=== PATIENT | male | born 1940 | race African-American/Black ===

== ENCOUNTER 2017-10-06 09:59 | Outpatient (CLI) | payer MEDICARE ==
[2017-10-06 11:05] LABS: Anion Gap 12 mmol/L (10-20); BUN (Urea Nitrogen) 13 mg/dL (8.4-25.7); Calc. Creatinine Clearance 0 mL/min (70-130); Calcium 10.5 mg/dL (7.8-10.44); Carbon Dioxide 28 mmol/L (23-31); Chloride 106 mmol/L (98-107); Estimated GFR-MDRD 80; Glucose 93 mg/dL (83-110); Sodium 142 mmol/L (136-145)
--- NOTE | 2017-10-06 15:07 | CT ---
CT ABDOMEN AND PELVIS WITH AND WITHOUT CONTRAST: HISTORY: C61, prostate cancer. COMPARISON: CT abdomen and pelvis 12/12/16. FINDINGS: Lung bases are clear. No pericardial effusion. On the noncontrast evaluation, no nephroureteral lithiasis or hydroureteral nephrosis. No secondary evidence of recently passed stone. Prior prostatectomy and stone dissection. Multiple cysts of the kidneys bilaterally. These findings are similar. There are also multiple hypodensities of both kidneys which are too small to fully mike racterize. There is no filling defect within the renal collecting systems. Moderate degenerative changes of the spine. Cholelithiasis is present. No free intraperitoneal gas or fluid. The appendix is visualized and is normal. No dilated loops of large or small bowel. Moderate atherosclerotic plaque of the aorta without aneurysmal dilatation. The L2 vertebral body hemangioma is similar. No new abnormal areas of sclerosis to suggest osseous m etastatic disease. Laminectomy changes at L3-L4. The hepatic segment 7 is a flash-filling hemangioma, unchanged. IMPRESSION: 1. No evidence for disease recurrence. 2. Flash hemangioma hepatic segment 7. 3. Multiple renal hypodensities bilaterally. Those of which are greater than 1 cm, are suggestive o f cysts. Those that are less than 1 cm are too small to fully characterize. 4. Cholelithiasis without cholecystitis. POS: [facility]
--- NOTE | 2017-10-06 16:43 | NM ---
WHOLE BODY BONE SCAN 10/06/17 HISTORY: Prostate cancer. FINDINGS: There is increased uptake seen within the bilateral shoulders, sternomanubrial joints and the right f orefoot likely related to degenerative changes. There is a focal area of increased uptake seen within the right maxilla which may be related to a dental blanca. There are scattered areas of increased upt bess seen within the cervical and lumbar spine also probably on a degenerative basis. There are photop enic defects involving each knee related to bilateral knee prostheses. There is increased uptake overlying the lower pelvis shown to represent urine contamination on latera l projection. No other areas of abnormal uptake or radiotracer are seen. Normal uptake is seen in the kidneys urinary bladder. IMPRESSION: 1. Scattered degenerative changes, but there are no scintigraphic findings to suggest osseous me tastatic disease. 2. Bilateral knee prostheses. 3. Focal increased uptake in the right maxilla which may be related to a dental blanca. POS: [facility]
[2017-10-06] MEDS ORDERED: Iopamidol 370 76% 100 ML VIAL ONE (17:31)
== END 2017-10-06 10:00 | disposition home or self-care (01) ==
LOC: CT 09:59
PROVIDERS: ATTEND Urology
DX: C61 Malignant neoplasm of prostate (principal); N32.0 Bladder-neck obstruction; N28.1 Cyst of kidney, acquired; K80.20 Calculus of gallbladder without cholecystitis without obstruction; D18.09 Hemangioma of other sites; M19.90 Unspecified osteoarthritis, unspecified site; Z96.653 Presence of artificial knee joint, bilateral
CPT/HCPCS: 74178; 78306; 80048; 84153; A9503; 36415

== ENCOUNTER 2017-11-24 11:14 | Emergency (ER) | payer MEDICARE, OTHER ==
--- NOTE | 2017-11-24 11:41 | RAD ---
PORTABLE AP CHEST X-RAY: 11/24/2017 HISTORY: Vomiting and weakness since Friday. COMPARISON: 01/02/2016 FINDINGS: The cardiac silhouette and pulmonary vasculature are within normal limits. There is a nodular densit y projecting over the lateral left lung base, overlying the anterior left sixth rib, probably due to a small calcified granuloma. The lungs are otherwise clear. Degenerative change is seen in the spin e. No other interval change. IMPRESSION: No acute cardiopulmonary process. POS: [facility]
[2017-11-24 12:00] LABS: #Basophils 0.1 thou/uL (0.0-0.2); #Eosinphils 0.1 thou/uL (0.0-0.7); #Monocytes 0.5 thou/uL (0.11-0.59); #Neutrophils 3.8 thou/uL (1.40-6.50); %Basophils 1.1 % (0.0-1.0); %Eosinophils 1.5 % (0.0-10.0); %Lymphocytes 30.6 % (21.0-51.0); %Monocytes 7.7 % (0.0-10.0); %Neutrophils 59.1 % (42.0-75.0); Hemoglobin 11.4 g/dL (14.0-18.0); Mean Corpuscular Hemoglobin 28.3 pg (27.0-31.0); Mean Corpuscular Volume 91.3 fl (80.0-94.0); Mean Platelet Volume 8.6 fL (7.4-10.4); Platelet Count 216 thou/uL (130-400); Red Blood Cell (RBC) Count 4.04 mill/uL (4.70-6.10); White Blood Cell (WBC) Count 6.4 thou/uL (4.8-10.8)
[2017-11-24 12:16] LABS: ALT (SGPT) 26 U/L (8-55); AST (SGOT) 30 U/L (5-34); Albumin 4.3 g/dL (3.4-4.8); Alkaline Phosphatase 88 U/L (40-150); Anion Gap 13 mmol/L (10-20); BUN (Urea Nitrogen) 31 mg/dL (8.4-25.7); Bilirubin, Total 0.4 mg/dL (0.2-1.2); CK (CPK) 221 U/L (30-200); Calc. Creatinine Clearance 0 mL/min (70-130); Calcium 10.4 mg/dL (7.8-10.44); Carbon Dioxide 26 mmol/L (23-31); Chloride 104 mmol/L (98-107); Estimated GFR-MDRD 64; Glucose 101 mg/dL (83-110); Potassium 4.5 mmol/L (3.5-5.1); Protein, Total 8.3 g/dL (5.8-8.1); Sodium 138 mmol/L (136-145)
[2017-11-24 12:20] LABS: CKMB 2.6 ng/mL (0-6.6); Troponin I Less than 0.010 ng/mL (< 0.028)
[2017-11-24] MEDS ORDERED: Ondansetron HCl/PF 4 MG/2 ML Vial ONE (13:31)
--- NOTE | 2017-11-29 15:33 | EKG ---
Test Reason : Blood Pressure : / mmHG Vent. Rate : 092 BPM Atrial Rate : 092 BPM P-R Int : 168 ms QRS Dur : 082 ms QT Int : 348 ms P-R-T Axes : 071 022 053 degrees QTc Int : 430 ms Normal sinus rhythm Normal ECG Confirmed by MICHAEL FRANKS ([id number]), continuity editor BOYD MENSAH ([id number]) on 11/29/2017 3:32:49 PM Referred By: Confirmed By:MICHAEL FRANKS
== END 2017-11-24 15:03 | disposition home or self-care (01) ==
LOC: ERS 11:14
DX: E86.0 Dehydration (principal); E78.5 Hyperlipidemia, unspecified; I10 Essential (primary) hypertension; F17.220 Nicotine dependence, chewing tobacco, uncomplicated; M10.9 Gout, unspecified
CPT/HCPCS: 36415; 71045; 80053; 82550; 82553; 84484; 85025; 93005; 94760; 96360; J2405

== ENCOUNTER 2017-12-18 13:19 | Outpatient (CLI) | payer MEDICARE ==
[2017-12-18 13:56] LABS: Mean Corpuscular HGB CONC 31.2 g/dL (32.0-36.0); Mean Corpuscular Volume 89.8 fl (80.0-94.0); Mean Platelet Volume 7.7 fL (7.4-10.4); Platelet Count 243 thou/uL (130-400); RBC Distribution Width 16.5 % (11.5-14.5); Red Blood Cell (RBC) Count 3.92 mill/uL (4.70-6.10); White Blood Cell (WBC) Count 4.4 thou/uL (4.8-10.8)
[2017-12-18 14:01] LABS: Bilirubin Negative (Negative); Blood, Urine Negative (Negative); Clarity CLEAR (Clear); Glucose, Urine (Dipstick) Negative (Negative); Leukocyte Trace (Negative); Nitrite Negative (Negative); Protein, Urine (Dipstick) Negative (Neg-Trace); Specific Gravity, Urine 1.022 (1.002-1.036); Urobilinogen 0.2 mg/dL (0.2-1.0)
[2017-12-18 14:03] LABS: INR-International Normal Ratio 1.1; PTT 33.2 SEC (22.9-36.1); Prothrombin Time 14.7 SEC (12.0-14.7)
[2017-12-18 14:08] LABS: Bacteria/HPF None Seen HPF (None Seen); Hyaline Casts/LPF 0-3 HYALINE CAST LPF (0-3 Hyaline); RBC/HPF 0-3 HPF (0-3); Squamous Epithelial 0-3 HPF (0-3)
[2017-12-18 14:27] LABS: Anion Gap 10 mmol/L (10-20); BUN (Urea Nitrogen) 18 mg/dL (8.4-25.7); Calc. Creatinine Clearance 0 mL/min (70-130); Calcium 10.2 mg/dL (7.8-10.44); Carbon Dioxide 27 mmol/L (23-31); Chloride 106 mmol/L (98-107); Estimated GFR-MDRD 78; Glucose 86 mg/dL (83-110); Potassium 4.1 mmol/L (3.5-5.1); Sodium 139 mmol/L (136-145)
--- NOTE | 2017-12-20 18:35 | EKG ---
Test Reason : Blood Pressure : / mmHG Vent. Rate : 072 BPM Atrial Rate : 072 BPM P-R Int : 188 ms QRS Dur : 080 ms QT Int : 380 ms P-R-T Axes : 072 051 056 degrees QTc Int : 416 ms Normal sinus rhythm Normal ECG When compared with ECG of 24-NOV-2017 11:47, No significant change was found Confirmed by BLACK ERWIN, SFareed ([id number]) on 12/20/2017 6:35:01 PM Referred By: SERGIO Confirmed By:DR. Eddi CLEANING MD
== END 2017-12-18 13:20 | disposition home or self-care (01) ==
LOC: LABBT 13:19
PROVIDERS: ATTEND Urology
DX: Z01.818 Encounter for other preprocedural examination (principal); C61 Malignant neoplasm of prostate; N32.0 Bladder-neck obstruction
CPT/HCPCS: 80048; 81001; 85027; 85610; 85730; 87086; 93005; 93010

== ENCOUNTER 2017-12-31 05:48 | Day surgery (SDC) | payer MEDICARE, OTHER ==
[2017-12-18 13:42] VITALS: BMI 28.5
[2017-12-31] MEDS ORDERED: Fentanyl 100 MCG/2 ML VIAL ONE (06:55)
[2017-12-31] MEDS ORDERED: Levofloxacin 500 mg/D5W 100 ml Premix Bag ONE (06:59)
[2017-12-31] MEDS ORDERED: Oxybutynin 5 MG TAB ONE (08:26)
[2017-12-31] MEDS ORDERED: Phenazopyridine HCl 97.5 MG TABLET ONE (08:27)
--- NOTE | 2017-12-31 09:47 | OP ---
DATE OF OPERATION: 12/31/2017 PREOPERATIVE DIAGNOSES: 1. A 77-year-old male with pathologic T3 N0 [place] sum 3+3 prostate cancer, status post rad ical prostatectomy, bilateral pelvic lymph node dissection performed by Dr. Higginbotham in 2004. 2. History of post-prostatectomy incontinence. 3. 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 POSTOPERATIVE DIAGNOSES: 1. A 77-year-old male with pathologic T3 N0 [place] sum 3+3 prostate cancer, status post rad ical prostatectomy, bilateral pelvic lymph node dissection performed by Dr. Higginbotham in 2004. 2. History of post-prostatectomy incontinence. 3. 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 PROCEDURES PERFORMED: Cystoscopy, transurethral resection of bladder neck contracture, cystoscopy, d ilation of bladder neck contracture, 22 Palestinian 10 mL Councill-tip Villanueva catheter placement over guide wire. SURGEON: Jeriyln Yañez D.O. ANESTHESIA: LMA. COMPLICATIONS: None apparent. DISPOSITION: To recovery room in stable condition. SPECIMEN: TUR of bladder neck. INDICATIONS FOR PROCEDURE AND HISTORY: Mr. Olivier is a 77-year-old -Citizen Of [place] male with pathol ogic T3 N0 [place] sum 3+3 with apical margin focally positive. The patient does have biochemical re currence, PSA; however, has been relatively stable at 0.2-0.3 and he does not desire adjuvant radiati on therapy. Metastatic workup is negative. I saw the patient for history of incontinence, found to have a tight bladder neck contracture which was dilated initially in my office over a guidewire under local. Restaging local cystoscopy demonstrated recurrence. I did inform the patient regarding recu rrent nature of bladder neck contracture. As he does have a component of apical margin positive, I d id inform the patient that will be prudent to obtain tissue diagnosis and TUR bladder neck contractur e for more efficient treatment of his bladder neck contracture. He desired to proceed. He has been fully informed regarding recurrent nature and likely requiring restaging cystoscopy and repeat dilata tion as indicated. All questions answered to his satisfaction and he desired to proceed. Risks and complications including, but not limited to, bleeding, pain, infection, urosepsis, recurrent strictur e, UTI, injury to adjacent organs reviewed. DESCRIPTION OF THE PROCEDURE: After an informed consent was signed, the patient was taken into the o perating room, placed in a dorsal lithotomy position with the genital area prepped and draped in the usual surgical sterile fashion. A 21-Palestinian cystoscope was utilized for cystoscopy. We entered the area of the bladder neck demonstrating a tight bladder neck contracture. This was approximately 5-8 Palestinian caliber in opening. A 0.35 Super Stiff wire was placed to the level of the bladder. We then sequentially dilated the bladder neck under direct visualization using 17 Palestinian, 20 Palestinian, and 21 F rench cystoscope sequentially. With the bladder neck dilated, I was able to enter the bladder which demonstrated no evidence of bladder stone and diverticulum. The UO's were far away from the bladder anastomosis. At this time, with the wire in situ, we transitioned to a visual obturator using gyrus bipolar prostate loop. Under direct visualization, the resectoscope was passed to the level of the b ladder. Transurethral resection of bladder neck contracture was performed. I did conservatively res ect the bladder neck contracture in which the scope was easily able to be maneuvered back and forth w ith a 26-Palestinian sheath. We did not over aggressively coagulate the bed of the resection to prevent a ccelerated recurrence of bladder neck contracture. Good hemostasis was obtained. With the wire in s itu, a 22 Palestinian Councill-tip Villanueva catheter passed with ease, 10 mL insufflated and attached to leg bag. He was discharged with ciprofloxacin, [place], Colace. He will follow up with me next f or a voiding trial.
[2017-12-31] MEDS ORDERED: Lidocaine 1% PF 5 ML VIAL ONE (13:38)
[2017-12-31] MEDS ORDERED: ePHEDrine/0.9% NaCl/PF SYRINGE 50 mg/10 ml ONE (13:38)
[2017-12-31] MEDS ORDERED: PHENYLEPHRINE-NS 100 MCG/ML 10 ML SYRINGE ONE (13:38)
[2017-12-31] MEDS ORDERED: PROPOFOL 200 MG/20 ML VIAL ONE (13:38)
== END 2017-12-31 11:10 | disposition home or self-care (01) ==
LOC: SDC 05:48
PROVIDERS: ATTEND Urology
PROC: 0TTC8ZZ Resection of Bladder Neck, Via Natural or Artificial Opening Endoscopic (ICD-10-PCS; principal; 2017-12-31)
PROC: 0T7C8DZ Dilation of Bladder Neck with Intraluminal Device, Via Natural or Artificial Opening Endoscopic (ICD-10-PCS; 2017-12-31)
DX: N32.0 Bladder-neck obstruction (principal); N32.89 Other specified disorders of bladder; M10.9 Gout, unspecified; I10 Essential (primary) hypertension; F17.220 Nicotine dependence, chewing tobacco, uncomplicated; Z79.899 Other long term (current) drug therapy; Z90.79 Acquired absence of other genital organ(s); Z98.890 Other specified postprocedural states; Z85.46 Personal history of malignant neoplasm of prostate
CPT/HCPCS: 88305; J1956; J2001; J2704; J3010

== ENCOUNTER 2018-07-27 10:46 | Outpatient (CLI) | payer MEDICARE, OTHER ==
[2018-07-27 12:07] LABS: Hemoglobin 12.9 g/dL (14.0-18.0); Mean Corpuscular HGB CONC 30.4 g/dL (32.0-36.0); Mean Corpuscular Volume 92.1 fL (78.0-98.0); Mean Platelet Volume 8.2 fL (7.4-10.4); Platelet Count 217 thou/uL (130-400); RBC Distribution Width 14.9 % (11.5-14.5); Red Blood Cell (RBC) Count 4.59 mill/uL (4.70-6.10); White Blood Cell (WBC) Count 4.8 thou/uL (4.8-10.8)
[2018-07-27 12:17] LABS: INR-International Normal Ratio 1.1
[2018-07-27 12:18] LABS: PTT 32.3 SEC (22.9-36.1)
[2018-07-27 12:29] LABS: Bilirubin Negative (Negative); Blood, Urine Negative (Negative); Clarity CLEAR (Clear); Glucose, Urine (Dipstick) Negative (Negative); Leukocyte Trace (Negative); Nitrite Negative (Negative); Protein, Urine (Dipstick) Negative (Neg-Trace); pH, Urine 5.5 (5.0-9.0)
[2018-07-27 12:30] LABS: Anion Gap 12 mmol/L (10-20); BUN (Urea Nitrogen) 23 mg/dL (8.4-25.7); Calc. Creatinine Clearance 0 mL/min (70-130); Carbon Dioxide 26 mmol/L (23-31); Chloride 104 mmol/L (98-107); Estimated GFR-MDRD 63; Glucose 88 mg/dL (83-110); Potassium 4.5 mmol/L (3.5-5.1); Sodium 137 mmol/L (136-145)
[2018-07-27 12:34] LABS: Bacteria/HPF None Seen HPF (None Seen); Hyaline Casts/LPF 0-3 HYALINE CAST LPF (0-3 Hyaline); Pathc Cast-AUWi Flag 0.14 (0-2.49); RBC/HPF 0-3 HPF (0-3); Squamous Epithelial 0-3 HPF (0-3); WBC/HPF 0-3 HPF (0-3)
--- NOTE | 2018-07-27 14:02 | RAD ---
CHEST TWO VIEWS: History: 77-year-old male for preoperative evaluation. Comparison: 03-20-17 FINDINGS: Heart size is within normal limits. The lungs are clear. No pneumonia, edema, or pleural effusion. IMPRESSION: No acute intrathoracic disease. POS: [facility]
--- NOTE | 2018-07-27 15:08 | EKG ---
Test Reason : Blood Pressure : / mmHG Vent. Rate : 059 BPM Atrial Rate : 059 BPM P-R Int : 198 ms QRS Dur : 084 ms QT Int : 396 ms P-R-T Axes : 058 058 053 degrees QTc Int : 392 ms Poor data quality, interpretation may be adversely affected Sinus bradycardia ST elevation, consider early repolarization Otherwise normal ECG Confirmed by ALBARO PAPPAS ([id number]) on 07/27/2018 3:07:31 PM Referred By: SERGIO Confirmed By:ALBARO PAPPAS
== END 2018-07-27 10:47 | disposition home or self-care (01) ==
LOC: LABBT 10:46
PROVIDERS: ATTEND Urology
DX: Z01.818 Encounter for other preprocedural examination (principal); C61 Malignant neoplasm of prostate; N32.0 Bladder-neck obstruction; N39.498 Other specified urinary incontinence; N28.1 Cyst of kidney, acquired; N52.9 Male erectile dysfunction, unspecified; M54.16 Radiculopathy, lumbar region
CPT/HCPCS: 71046; 80048; 81001; 85027; 85610; 85730; 87086; 93005; 93010

== ENCOUNTER 2018-08-05 07:28 | Day surgery (SDC) | payer MEDICARE, OTHER ==
[2018-07-27 11:06] VITALS: BMI 28.0
[2018-08-05] MEDS ORDERED: Levofloxacin 500 mg/D5W 100 ml Premix Bag ONE (08:50)
[2018-08-05] MEDS ORDERED: Fentanyl 100 MCG/2 ML VIAL ONE (10:59)
[2018-08-05] MEDS ORDERED: Phenazopyridine HCl 97.5 MG TABLET ONE (12:02)
[2018-08-05] MEDS ORDERED: Oxybutynin 5 MG TAB ONE (12:02)
--- NOTE | 2018-08-05 13:21 | OP ---
DATE OF SERVICE: 08/05/2018 PREOPERATIVE DIAGNOSES: 1. A 77-year-old male with pathologic T3N0 and [place] sum 3+3, status post radical prostatectomy in [address] Higginbotham: 2. History of high-grade bladder neck contracture, recurrent. 3. History of post-prostatectomy incontinence. POSTOPERATIVE DIAGNOSES: 1. A 77-year-old male with pathologic T3N0 and [place] sum 3+3, status post radical prostatectomy in [address] Higginbotham: 2. History of high-grade bladder neck contracture, recurrent. 3. History of post-prostatectomy incontinence. PROCEDURE: Cystoscopy, balloon dilation of bladder neck contracture, 20 [place] Islander [place]-tip Villanueva catheter placement with 10 mL insufflated over a guidewire assist. SURGEON: Jerilyn Yañez D.O. ANESTHESIA: LMA. COMPLICATIONS: None apparent. SPECIMEN: None. DISPOSITION: To recovery room in stable condition. INDICATIONS FOR PROCEDURE AND HISTORY: Mr. Olivier is a pleasant 77-year-old male who transferred care from Dr. Higginbotham. He had a radical prostatectomy in 2004. He declined adjuvant RT due to apical margin being focally positive. He has pathologic T3N0, [place] sum 3+3. He is known to have a bladder neck contracture with incontinence. He was found to have a very tight bladder neck contracture 5 [place] Islander caliber on initial visit with me back in 2017. I did perform a TUR bladder neck contracture earlier this year which was uneventful and the specimen was negative for persistent prostate cancer. Restaging cystoscopy demonstrated recurrent bladder neck contracture and he presents today for dilation. Risks and complications and indications reviewed including , but not limited to, bleeding, pain, infection, injury to adjacent organs, urosepsis. He has been fully informed that due to his surgery, there are two surgical bladder neck contractures, most likely he will have recurrence which we need to continue to monitor. DESCRIPTION OF THE PROCEDURE: After an informed consent was signed, the patient was taken to the operating room, placed in a dorsal lithotomy position with the genital area prepped and draped in the usual surgical sterile fashion. Bilateral LYLY hose, SCDs, and broad-spectrum antibiotics were provided. A 21- [place] Islander cystoscope was utilized for cystoscopy. This demonstrated no evidence of urethral stricture at the level of the bladder neck. Again appreciated as tight bladder neck contracture approximately 5 [place] Islander caliber on cystoscopy. I was able to pass a 0.35 Super Stiff wire to the level of the bladder. He is known to have a very dense bladder neck contracture. We initially passed a ureteral balloon dilator 12 [place] Islander through the cystoscope and we dilated this with the balloon and held pressure for approximately 3-4 minutes. This circumferentially dilated the bladder neck contracture in which we were able to see the lumen of the bladder. We subsequently passed a NephroMax balloon dilator; however, we inflated the balloon under direct visualization with a cystoscope. Subsequently, although the bladder neck contracture persists, I was able to pass a 21-[place] Islander cystoscope under guidewire assistance to the level of the bladder. The stricture is very dense in nature. Bladder was surveyed demonstrating no stones, no tumors. With the wire in situ, I subsequently dilated his bladder neck with a 25 sheath with direct visualization. I did not perform another TUR bladder neck contracture today, as this is anastomotic contracture. Balloon dilatation and nonthermal dilation was performed today in hopes to minimize early recurrence. With the wire in situ, A 20-C[place] Islander [place]- tip Villanueva catheter passed with ease and 10 mL insufflated. Leg bag gravity bag is attached. He is discharged with ciprofloxacin until followup, [place] 5/325, # 30, Colace, VESIcare 5 mg for 10 days is provided. As he does have significant post-prostatectomy incontinence, I would consider anticholinergics with monitoring of his postvoid residual . He will follow up with me next week for catheter removal. KEVIN
== END 2018-08-05 13:36 | disposition home or self-care (01) ==
LOC: SDC 07:28
PROVIDERS: ATTEND Urology
PROC: 0T7C8ZZ Dilation of Bladder Neck, Via Natural or Artificial Opening Endoscopic (ICD-10-PCS; principal; 2018-08-05)
DX: N32.0 Bladder-neck obstruction (principal); N39.498 Other specified urinary incontinence; N52.9 Male erectile dysfunction, unspecified; M10.9 Gout, unspecified; I10 Essential (primary) hypertension; F17.220 Nicotine dependence, chewing tobacco, uncomplicated; N28.1 Cyst of kidney, acquired; M54.16 Radiculopathy, lumbar region; Z85.46 Personal history of malignant neoplasm of prostate; Z79.899 Other long term (current) drug therapy; Z90.79 Acquired absence of other genital organ(s); Z98.890 Other specified postprocedural states
CPT/HCPCS: 53605; C1758; J1956; J3010

== ENCOUNTER 2019-02-04 13:26 | Outpatient (CLI) | payer MEDICARE ==
[2019-02-04 15:02] LABS: Hemoglobin 12.4 g/dL (14.0-18.0); Mean Corpuscular HGB CONC 30.9 g/dL (32.0-36.0); Mean Corpuscular Hemoglobin 28.4 pg (27.0-31.0); Mean Corpuscular Volume 91.7 fL (78.0-98.0); Mean Platelet Volume 8.1 fL (7.4-10.4); Platelet Count 188 thou/uL (130-400); RBC Distribution Width 15.1 % (11.5-14.5); Red Blood Cell (RBC) Count 4.38 mill/uL (4.70-6.10); White Blood Cell (WBC) Count 5.6 thou/uL (4.8-10.8)
[2019-02-04 15:07] LABS: INR-International Normal Ratio 1.1; PTT 31.5 SEC (22.9-36.1); Prothrombin Time 13.8 SEC (12.0-14.7)
[2019-02-04 15:22] LABS: Anion Gap 10 mmol/L (10-20); BUN (Urea Nitrogen) 16 mg/dL (8.4-25.7); Calc. Creatinine Clearance 0 mL/min (70-130); Calcium 9.9 mg/dL (7.8-10.44); Carbon Dioxide 30 mmol/L (23-31); Chloride 107 mmol/L (98-107); Estimated GFR-MDRD 72; Glucose 86 mg/dL (83-110); Sodium 143 mmol/L (136-145)
== END 2019-02-04 13:27 | disposition home or self-care (01) ==
LOC: LABBT 13:26
PROVIDERS: ATTEND Urology
DX: Z01.818 Encounter for other preprocedural examination (principal); C61 Malignant neoplasm of prostate; N32.0 Bladder-neck obstruction; N39.498 Other specified urinary incontinence; N28.1 Cyst of kidney, acquired; N52.9 Male erectile dysfunction, unspecified; M54.16 Radiculopathy, lumbar region
CPT/HCPCS: 80048; 85027; 85610; 85730; 93005; 93010

== ENCOUNTER 2019-02-10 07:40 | Day surgery (SDC) | payer MEDICARE ==
[2019-02-04 13:49] VITALS: BMI 27.8
[2019-02-10] MEDS ORDERED: cefTRIAXone\\ROCEPHIN 2 GM VIAL ONE (08:35)
[2019-02-10] MEDS ORDERED: Sodium Chloride 0.9% 100 ML ONE (08:35)
[2019-02-10] MEDS ORDERED: Fentanyl 100 MCG/2 ML VIAL ONE (11:36)
[2019-02-10] MEDS ORDERED: Iothalamate Meglumine 60% 50 ML VIAL FS ONE (11:52)
[2019-02-10] MEDS ORDERED: Oxybutynin 5 MG TAB ONE (12:45)
[2019-02-10] MEDS ORDERED: Phenazopyridine HCl 97.5 MG TABLET ONE (12:46)
[2019-02-10] MEDS ORDERED: Ondansetron PF 4 MG/2 ML Vial ONE (13:56)
[2019-02-10] MEDS ORDERED: PROPOFOL 200 MG/20 ML VIAL ONE (13:56)
[2019-02-10] MEDS ORDERED: PHENYLEPHRINE-NS 100 MCG/ML 10 ML SYRINGE ONE (13:56)
[2019-02-10] MEDS ORDERED: Lidocaine 1% PF 5 ML VIAL ONE (13:56)
--- NOTE | 2019-02-10 19:27 | OP ---
DATE OF PROCEDURE: 02/10/2019 PREOPERATIVE DIAGNOSES: 1. A 78-year-old male with pathologic T3 N0, [place] sum 3+3, apical margin positive, status post radical prostatectomy in [address] Leroy Higginbotham. 2. Postprostatectomy incontinence. 3. Recurrent bladder neck contracture. POSTOPERATIVE DIAGNOSES: 1. A 78-year-old male with pathologic T3 N0, [place]un[place] sum 3+3, apical margin positive, status post radical prostatectomy in [address] Leroy Higginbotham. 2. Postprostatectomy incontinence. 3. Recurrent bladder neck contracture. PROCEDURES PERFORMED: Cystoscopy, balloon dilation of bladder neck, 22-Omani [place] tip Villanueva catheter placement to gravity. ANESTHESIA: LMA. COMPLICATIONS: None apparent. DISPOSITION: To recovery room in stable condition. INDICATIONS FOR PROCEDURE AND HISTORY: Mr. Mccurdy is a 78-year-old male with above radical metastatic prostate cancer, status post radical prostatectomy. He has had recurrent bladder neck contracture, which required dilatation starting at [address] Higginbotham. When I initially saw the patient back in 2017, his bladder neck caliber was about 4-Omani caliber. He has undergone bladder neck contracture dilatation. I did a TUR of bladder neck to rule out cancer recurrence with no evidence of malignancy. Dense fibrosis was seen. He recently underwent staged cystoscopy in my office demonstrating recurrent high-grade bladder neck contracture. I was only able to dilate him to a 10-Omani, which was quite challenging , a 12-Omani Villanueva catheter over guidewire. He is advised regarding exam under anesthesia as dilation in office was suboptimal. DESCRIPTION OF PROCEDURE: After an informed consent was signed, the patient was taken to the operating room, placed in the dorsal lithotomy position with the genital area prepped and draped in the usual surgical sterile fashion. A 21- Omani cystoscope was utilized for cystoscopy. The pre-existing Villanueva catheter was removed. When passing the scope, the anterior urethra was within normal limits. The bladder neck was surveyed as he had a Villanueva catheter. Bladder neck was patent. I placed a 0.35 wire into the bladder and we gently passed a 21-Omani cystoscope over a guidewire assist. Bladder was grossly unremarkable. UOs well away from the bladder neck. No stones. No bladder diverticulum is seen. At this time, I transitioned to a 25-Omani sheath. We gently dilated over direct visualization. We left the wire in situ, and using a NephroMax balloon dilator, we gently dilated his bladder neck to 30-Omani under fluoroscopic guidance. He tolerated the procedure well. The balloon was subsequently deflated and a 22-Omani [place] tip Villanueva catheter passed without difficulty. Wire was then removed. 10 mL of sterile water insufflated into the balloon. It was attached to leg bag. He tolerated the procedure well. He was discharged with ciprofloxacin until followup appointment , Deb palomares.r.n. He will return to clinic next week to have his catheter removed. He will require routine surveillance cystoscopy, and informed family that they will likely require exam under anesthesia as his strictures are very dense with suboptimal dilatation performed in the office. Job ID: [id number] [facility]
== END 2019-02-10 14:25 | disposition home or self-care (01) ==
LOC: SDC 07:40
PROVIDERS: ATTEND Urology
PROC: 0TJB8ZZ Inspection of Bladder, Via Natural or Artificial Opening Endoscopic (ICD-10-PCS; principal; 2019-02-10)
DX: N32.0 Bladder-neck obstruction (principal); N39.498 Other specified urinary incontinence; N52.9 Male erectile dysfunction, unspecified; E78.00 Pure hypercholesterolemia, unspecified; M10.9 Gout, unspecified; I10 Essential (primary) hypertension; F17.220 Nicotine dependence, chewing tobacco, uncomplicated; M54.16 Radiculopathy, lumbar region; Z85.46 Personal history of malignant neoplasm of prostate; Z79.899 Other long term (current) drug therapy; Z90.79 Acquired absence of other genital organ(s); Z98.890 Other specified postprocedural states
CPT/HCPCS: 76000; J0696; J3010; J3490; Q9961

== ENCOUNTER 2019-05-13 12:46 | Outpatient (CLI) | payer MEDICARE ==
[2019-05-13 14:29] LABS: Hemoglobin 12.8 g/dL (14.0-18.0); Mean Corpuscular Hemoglobin 27.9 pg (27.0-31.0); Mean Platelet Volume 8.1 fL (7.4-10.4); Platelet Count 195 thou/uL (130-400); RBC Distribution Width 15.3 % (11.5-14.5); Red Blood Cell (RBC) Count 4.57 mill/uL (4.70-6.10); White Blood Cell (WBC) Count 5.6 thou/uL (4.8-10.8)
[2019-05-13 14:33] LABS: PTT 30.4 SEC (22.9-36.1); Prothrombin Time 13.4 SEC (12.0-14.7)
[2019-05-13 14:34] LABS: Bacteria/HPF None Seen HPF (None Seen); Bilirubin Negative (Negative); Blood, Urine Negative (Negative); Clarity Clear (Clear); Glucose, Urine (Dipstick) Normal (Negative); Leukocyte Negative Leu/uL (Negative); Nitrite Negative (Negative); Protein, Urine (Dipstick) Negative (Neg-Trace); RBC/HPF 0-3 HPF (0-3); Squamous Epithelial None Seen HPF (0-3); Urobilinogen Normal mg/dL (Less than 2); WBC/HPF 0-3 HPF (0-3)
[2019-05-13 14:49] LABS: Anion Gap 13 mmol/L (10-20); BUN (Urea Nitrogen) 18 mg/dL (8.4-25.7); Calc. Creatinine Clearance 0 mL/min (70-130); Calcium 10.5 mg/dL (7.8-10.44); Carbon Dioxide 26 mmol/L (23-31); Chloride 106 mmol/L (98-107); Estimated GFR-MDRD 69; Glucose 87 mg/dL (83-110); Potassium 4.3 mmol/L (3.5-5.1); Sodium 141 mmol/L (136-145)
--- NOTE | 2019-05-18 22:39 | EKG ---
Test Reason : Blood Pressure : / mmHG Vent. Rate : 059 BPM Atrial Rate : 059 BPM P-R Int : 196 ms QRS Dur : 084 ms QT Int : 400 ms P-R-T Axes : 062 057 063 degrees QTc Int : 396 ms Sinus bradycardia Otherwise normal ECG When compared with ECG of 04-FEB-2019 14:46, No significant change was found Confirmed by Gena WELSH ([id number]) on 05/18/2019 10:39:22 PM Referred By: SERGIO Confirmed By:Gena WELSH
== END 2019-05-13 12:47 | disposition home or self-care (01) ==
LOC: LABBT 12:46
PROVIDERS: ATTEND Urology
DX: Z01.818 Encounter for other preprocedural examination (principal); C61 Malignant neoplasm of prostate; N32.0 Bladder-neck obstruction; N28.1 Cyst of kidney, acquired; N52.9 Male erectile dysfunction, unspecified; M54.16 Radiculopathy, lumbar region
CPT/HCPCS: 80048; 81001; 85027; 85610; 85730; 87086; 93005; 93010

== ENCOUNTER 2019-05-19 08:06 | Day surgery (SDC) | payer MEDICARE ==
[2019-05-13 13:15] VITALS: BMI 27.3
[2019-05-19] MEDS ORDERED: Levofloxacin 500 mg/D5W 100 ml Premix Bag ONE (09:02)
[2019-05-19] MEDS ORDERED: Iothalamate Meglumine 60% 50 ML VIAL FS ONE (12:16)
[2019-05-19] MEDS ORDERED: Fentanyl 100 MCG/2 ML VIAL ONE (12:27)
[2019-05-19] MEDS ORDERED: Oxybutynin 5 MG TAB ONE (13:58)
[2019-05-19] MEDS ORDERED: Phenazopyridine HCl 97.5 MG TABLET ONE (13:58)
--- NOTE | 2019-05-19 14:56 | RAD ---
RETROGRADE IVP: 05/19/19 HISTORY: Bladder neck ballooning. COMPARISON: None available. FINDINGS/IMPRESSION: A single intraoperative fluoroscopic image of the abdomen is obtained. A guide wire is noted to overl ie the pelvis in the region of the expected location of the urinary bladder. The urinary bladder is n ot opacified on this exam. Multiple surgical clips are seen in the pelvis likely related to prior pro statectomy. Degenerative changes are seen in the spine. Correlation with intraoperative findings is r ecommended. POS: [facility]
--- NOTE | 2019-05-19 15:50 | OP ---
DATE OF PROCEDURE: 05/19/2019 PREOPERATIVE DIAGNOSES: 1. A 78-year-old male with pathologic T3, [place] sum 3+3, apical margin focally positive, status post radical prostatectomy by Dr. Morales in 2004. 2. History of postprostatectomy incontinence. 3. History of dense bladder neck contracture, recurrent. POSTOPERATIVE DIAGNOSES: 1. A 78-year-old male with pathologic T3, [place] sum 3+3, apical margin focally positive, status post radical prostatectomy by Dr. Morales in 2004. 2. History of postprostatectomy incontinence. 3. History of dense bladder neck contracture, recurrent. PROCEDURE PERFORMED: Cystoscopy, balloon dilatation of bladder neck, 20-Kazakh [place] tip Villanueva catheter placement over guidewire. ANESTHESIA: LMA. COMPLICATIONS: None apparent. DISPOSITION: To recovery room in stable condition. DESCRIPTION OF PROCEDURE: The patient was taken to the operating room, placed in a dorsal lithotomy position with the genital area prepped and draped in the usual surgical sterile fashion. Broad-spectrum antibiotics were provided. Bilateral LYLY hose and SCDs placed. A 21-Kazakh cystoscope was utilized for cystoscopy, which demonstrated normal anterior urethra. We again staged the bladder neck as previously noted on local cystoscopy demonstrating a dense bladder neck contracture, lumen approximately 5-Kazakh. A 0.35 Sensor wire was passed into the bladder and a 5-Kazakh open-ended catheter, subsequently passed to the level of the bladder. With the open-ended catheter and wire in the bladder, we gently negotiated the rigid cystoscope passively dilating his bladder neck. This was found to be very dense as previously noted. Bladder was entered, which demonstrated no bladder stones. UOs are well away from the bladder neck. NO lesions were seen. With the wire in situ, we then subsequently passed a NephroMax balloon dilator 30-Kazakh to the level of the bladder just proximal to the bladder neck. This was visualized on fluoroscopy and as so on cystoscopic guidance. Balloon dilatation was performed with 30-Kazakh balloon and pressure held at maximum pressure. Subsequently, we deflated the balloon. Deflating the balloon, I was able to pass a 21 cystoscope without significant issues back in forth. A 22-Kazakh 10 mL Councill tip Villanueva catheter was then placed over guidewire and the guidewire completely removed. 10 mL was insufflated and attached to leg bag. PLAN: He is discharged with ciprofloxacin for course of 14 days until followup appointment and Azo p.r.n. He will return to clinic next to have his catheter removed at 2:30 p.m. Due to recurrent nature of the bladder neck contracture, very dense in nature with suboptimal dilatation in the office, I had informed the patient that he will require routine surveillance exam under anesthesia and dilation. Alternatives of option including reconstructive surgery of the bladder neck, urinary diversion, CIC, suprapubic tube reviewed, which he has declined. Job ID: [id number] [facility]
== END 2019-05-19 15:10 | disposition home or self-care (01) ==
LOC: SDC 08:06
PROVIDERS: ATTEND Urology
PROC: 0TJB8ZZ Inspection of Bladder, Via Natural or Artificial Opening Endoscopic (ICD-10-PCS; principal; 2019-05-19)
DX: N32.0 Bladder-neck obstruction (principal); N39.498 Other specified urinary incontinence; N28.1 Cyst of kidney, acquired; N52.9 Male erectile dysfunction, unspecified; M54.16 Radiculopathy, lumbar region; I10 Essential (primary) hypertension; E78.00 Pure hypercholesterolemia, unspecified; M10.9 Gout, unspecified; Z79.899 Other long term (current) drug therapy; Z85.46 Personal history of malignant neoplasm of prostate
CPT/HCPCS: 74420; C1758; J1956; J3010

== ENCOUNTER 2019-09-02 10:40 | Outpatient (CLI) | payer MEDICARE ==
[2019-09-02 12:47] LABS: Hemoglobin 12.6 g/dL (14.0-18.0); Mean Corpuscular HGB CONC 31.1 g/dL (32.0-36.0); Mean Corpuscular Volume 93.2 fL (78.0-98.0); Mean Platelet Volume 8.5 fL (7.4-10.4); Platelet Count 176 thou/uL (130-400); RBC Distribution Width 15.1 % (11.5-14.5); Red Blood Cell (RBC) Count 4.36 mill/uL (4.70-6.10); White Blood Cell (WBC) Count 6.8 thou/uL (4.8-10.8)
[2019-09-02 12:59] LABS: Bacteria/HPF None Seen HPF (None Seen); Bilirubin Negative (Negative); Blood, Urine Negative (Negative); Clarity Clear (Clear); Glucose, Urine (Dipstick) Normal (Negative); Leukocyte Negative Leu/uL (Negative); Nitrite Negative (Negative); Protein, Urine (Dipstick) Negative (Neg-Trace); RBC/HPF 0-3 HPF (0-3); Squamous Epithelial 0-3 HPF (0-3); Urobilinogen Normal mg/dL (Less than 2); WBC/HPF 0-3 HPF (0-3)
[2019-09-02 13:04] LABS: Anion Gap 11 mmol/L (10-20); BUN (Urea Nitrogen) 17 mg/dL (8.4-25.7); Calc. Creatinine Clearance 0 mL/min (70-130); Calcium 9.8 mg/dL (7.8-10.44); Carbon Dioxide 28 mmol/L (23-31); Chloride 107 mmol/L (98-107); Estimated GFR-MDRD 70; Glucose 78 mg/dL (83-110); Potassium 4.2 mmol/L (3.5-5.1); Sodium 142 mmol/L (136-145)
[2019-09-02 13:06] LABS: INR-International Normal Ratio 1.1; Prothrombin Time 13.7 SEC (12.0-14.7)
--- NOTE | 2019-09-03 17:57 | EKG ---
Test Reason : Blood Pressure : / mmHG Vent. Rate : 062 BPM Atrial Rate : 062 BPM P-R Int : 200 ms QRS Dur : 082 ms QT Int : 384 ms P-R-T Axes : 044 055 055 degrees QTc Int : 389 ms Normal sinus rhythm Normal ECG When compared with ECG of 13-MAY-2019 14:04, No significant change was found Confirmed by Gena WELSH ([id number]) on 09/03/2019 5:56:27 PM Referred By: SERGIO Confirmed By:Gena WELSH
== END 2019-09-02 10:41 | disposition home or self-care (01) ==
LOC: LABBT 10:40
PROVIDERS: ATTEND Urology
DX: Z01.818 Encounter for other preprocedural examination (principal); C61 Malignant neoplasm of prostate; N32.0 Bladder-neck obstruction; N39.498 Other specified urinary incontinence; N28.1 Cyst of kidney, acquired; N52.9 Male erectile dysfunction, unspecified; M54.16 Radiculopathy, lumbar region
CPT/HCPCS: 80048; 81001; 85027; 85610; 85730; 87086; 93005; 93010

== ENCOUNTER 2019-09-08 07:32 | Day surgery (SDC) | payer MEDICARE, OTHER ==
[2019-09-02 11:06] VITALS: BMI 27.1
[2019-09-08] MEDS ORDERED: Levofloxacin 500 mg/D5W 100 ml Premix Bag ONE (09:44)
[2019-09-08] MEDS ORDERED: Fentanyl 100 MCG/2 ML VIAL ONE (10:39)
[2019-09-08] MEDS ORDERED: Iothalamate Meglumine 60% 50 ML VIAL FS ONE (11:04)
--- NOTE | 2019-09-08 12:55 | OP ---
DATE OF PROCEDURE: 09/08/2019 PREOPERATIVE DIAGNOSIS: Mr. Olivier is a 78-year-old male with pathologic T3 N0 [place] score 3+3, status post radical prostatectomy by Dr. Davila in 2004 with recurrent bladder neck contracture. POSTOPERATIVE DIAGNOSIS: Mr. Olivier is a 78-year-old male with pathologic T3 N0 [place] score 3+3, status post radical prostatectomy by Dr. Davila in 2004 with recurrent bladder neck contracture. PROCEDURES PERFORMED: Cystoscopy, balloon dilatation, dilation of bladder neck contracture, and 20-Syrian [place] tip Villanueva catheter placement. ANESTHESIA: LMA. DISPOSITION: To recovery room in stable condition. DRAINS: 20-Syrian 10 mL Councill tip. INDICATIONS FOR THE PROCEDURE AND HISTORY: Mr. Mccurdy is a pleasant 78-year- old male with history of recurrent postprostatectomy bladder neck contracture. He has a very dense bladder neck contracture with suboptimal dilatation under local. He presents today for interval cystoscopy and bladder neck contracture dilatation. His last bladder neck contracture dilatation was about 3 months ago, recent staging demonstrated 8- to 10-Syrian recurrent bladder neck contracture, DESCRIPTION OF PROCEDURE: After an informed consent was signed, the patient was taken to the operating room, placed in a dorsal lithotomy position with the genital area prepped and draped in the usual surgical sterile fashion. Again, we performed a cystoscopy with a 20-Syrian cystoscope, which demonstrated a tight bladder neck contracture 8- to 10-Syrian caliber, bladder neck is deviated anteriorly. Using a 0.035 Sensor wire with a Super Stiff, this was placed to the level of the bladder. I was able to gently pass my rigid cystoscope, with the wire in situ accessing the bladder. The bladder was surveyed, which demonstrating the UO about 5 to 6 mm proximal to the bladder neck with no bladder stones or tumors. At this time, we used a [place] [employer] 30-Syrian NephroMax balloon dilator to dilate the bladder neck atraumatically. We then subsequently passed a 20-Syrian [place] tip Villanueva catheter without difficulty, and he tolerated the procedure well. There was some oozing at the meatus, consistent with bleeding from the contracture dilatation. We watched him postprocedure, and we held some pressure, the bleeding did improve. Urine itself is risa, pink. I did flush the catheter without significant issues. This was attached to leg bag, gravity bag. He will follow up with me next for postop voiding trial. Catheter removal. He was discharged with ciprofloxacin for 10 days, Azo p.r.n. As he has recurrent dilatation, requiring interval dilatation every 3 to 4 months, I would consider preemptively scheduling him for exam under anesthesia every 3 to 4 months as repeat cystoscopy under local demonstrates persistent recurrence. He has been offered radical diversion, which he declines which is reasonable given his advanced age. Job ID: [id number] [facility]
[2019-09-08] MEDS ORDERED: Phenazopyridine HCl 97.5 MG TABLET ONE (16:05)
== END 2019-09-08 16:25 | disposition home or self-care (01) ==
LOC: SDC 07:32
PROVIDERS: ATTEND Urology
PROC: 0TJB8ZZ Inspection of Bladder, Via Natural or Artificial Opening Endoscopic (ICD-10-PCS; principal; 2019-09-08)
PROC: 0T9B80Z Drainage of Bladder with Drainage Device, Via Natural or Artificial Opening Endoscopic (ICD-10-PCS; 2019-09-08)
DX: N32.0 Bladder-neck obstruction (principal); N52.9 Male erectile dysfunction, unspecified; N39.498 Other specified urinary incontinence; M54.16 Radiculopathy, lumbar region; M10.9 Gout, unspecified; I10 Essential (primary) hypertension; F17.220 Nicotine dependence, chewing tobacco, uncomplicated; Z85.46 Personal history of malignant neoplasm of prostate; Z79.899 Other long term (current) drug therapy
CPT/HCPCS: J1956; J3010

== ENCOUNTER 2019-11-08 09:59 | Outpatient (CLI) | payer MEDICARE ==
[2019-11-08 12:41] LABS: Hemoglobin 12.1 g/dL (14.0-18.0); Mean Corpuscular HGB CONC 31.6 g/dL (32.0-36.0); Mean Corpuscular Hemoglobin 28.7 pg (27.0-31.0); Mean Platelet Volume 9.1 fL (7.4-10.4); Platelet Count 180 thou/uL (130-400); Red Blood Cell (RBC) Count 4.22 mill/uL (4.70-6.10); White Blood Cell (WBC) Count 4.7 thou/uL (4.8-10.8)
[2019-11-08 12:48] LABS: PTT 31.7 SEC (22.9-36.1)
== END 2019-11-08 10:00 | disposition home or self-care (01) ==
LOC: LABBT 09:59
PROVIDERS: ATTEND Urology
DX: Z01.812 Encounter for preprocedural laboratory examination (principal); C61 Malignant neoplasm of prostate; N32.0 Bladder-neck obstruction
CPT/HCPCS: 85027; 85610; 85730

== ENCOUNTER 2019-11-15 05:38 | Day surgery (SDC) | payer MEDICARE ==
[2019-11-08 10:32] VITALS: BMI 26.9
[2019-11-15] MEDS ORDERED: Levofloxacin 500 mg/D5W 100 ml Premix Bag ONE (06:40)
[2019-11-15] MEDS ORDERED: SUGAMMADEX SODIUM 200 MG/2 ML VIAL ONE (06:59)
[2019-11-15] MEDS ORDERED: Fentanyl 100 MCG/2 ML VIAL ONE (06:59)
[2019-11-15] MEDS ORDERED: Iothalamate Meglumine 60% 50 ML VIAL FS ONE (08:07)
[2019-11-15] MEDS ORDERED: Phenazopyridine HCl 97.5 MG TABLET ONE ×2 (08:34→08:35)
[2019-11-15] MEDS ORDERED: Oxybutynin 5 MG TAB ONE (08:35)
[2019-11-15] MEDS ORDERED: Dexamethasone 20 MG/5 ML VIAL ONE (10:05)
[2019-11-15] MEDS ORDERED: EPHEDRINE 25 MG/5 ML SYRINGE ONE (10:05)
[2019-11-15] MEDS ORDERED: PROPOFOL 200 MG/20 ML VIAL ONE (10:05)
[2019-11-15] MEDS ORDERED: Ondansetron PF 4 MG/2 ML Vial ONE (10:05)
[2019-11-15] MEDS ORDERED: Lidocaine 1% PF 5 ML VIAL ONE (10:05)
--- NOTE | 2019-11-15 14:17 | OP ---
DATE OF PROCEDURE: 11/15/2019 PREOPERATIVE DIAGNOSES: 1. A 78-year-old male with pathologic T3 N0, Yunier score 3+3, with recurrent bladder neck contracture. 2. History of radical prostatectomy by Dr. Higginbotham in 2004. POSTOPERATIVE DIAGNOSES: 1. A 78-year-old male with pathologic T3 N0, [place] score 3+3, with recurrent bladder neck contracture, dense. 2. History of radical prostatectomy by Dr. Higginbotham in 2004. PROCEDURES PERFORMED: Cystoscopy, balloon dilatation of bladder neck contracture, 18-Ukrainian [place] tip Villanueva catheter placement over guidewire. ANESTHESIA: LMA. COMPLICATIONS: None apparent. DISPOSITION: To recovery room in stable condition. INDICATIONS FOR PROCEDURE AND HISTORY: Mr. Olivier is a pleasant 78-year-old male with history of recurrent postprostatectomy bladder neck contracture. As it is dense in nature, he requires exam under anesthesia. He has been undergoing interval dilatation every 3 months uneventfully under anesthesia. He presents today for similar issues. DESCRIPTION OF PROCEDURE: After an informed consent was signed, the patient was taken to the operating room and placed in a dorsal lithotomy position with the genital area prepped and draped in the usual surgical sterile fashion. A 21- Ukrainian cystoscope was utilized for cystoscopy, which demonstrated no evidence of urethral stricture. Bladder neck contracture again seen, caliber about 10-Ukrainian. A 0.035 Sensor wire was placed to the level of the bladder and using a 21-Ukrainian 4-cm balloon dilator, we dilated his bladder neck atraumatically. Pressure was held at maximum burst pressure for about 2 to 3 minutes. Subsequently, balloon was completely deflated, and an 18-Ukrainian Villanueva catheter, [place] tip, passed over guidewire with ease. 10 mL was insufflated and attached to gravity leg bag. He will follow up with me next week for catheter removal. We will continue to dilate his bladder neck contracture every 3 to 4 months. Job ID: [id number] [facility]
== END 2019-11-15 09:55 | disposition home or self-care (01) ==
LOC: SDC 05:38
PROVIDERS: ATTEND Urology
PROC: 0TJB8ZZ Inspection of Bladder, Via Natural or Artificial Opening Endoscopic (ICD-10-PCS; principal; 2019-11-15)
DX: N32.0 Bladder-neck obstruction (principal); I10 Essential (primary) hypertension; M10.9 Gout, unspecified; Z79.899 Other long term (current) drug therapy; Z85.46 Personal history of malignant neoplasm of prostate; Z90.79 Acquired absence of other genital organ(s)
CPT/HCPCS: 76000; C1758; C1769; J1100; J1956; J2001; J2405; J2704; J3010

== ENCOUNTER 2020-02-09 12:13 | Outpatient (CLI) | payer MEDICARE, OTHER ==
[~2020-02-09 12:13] MED LIST: Magnevist 469MG/ML 20 ML VIAL ONE
--- NOTE | 2020-02-09 14:01 | MRI ---
MRI cervical spine noncontrast: DATE: 02/09/2020 HISTORY: 79-year-old male with cervical radiculopathy and bilateral hand weakness FINDINGS: Cervical spinal canal is diffusely small in caliber on a congenital basis due to developmentally shor t pedicles. This is exacerbated by high-grade degenerative changes at multiple levels. There is degenerative disc disease at all levels from C3-4 through C7-T1. This includes severe disc space narr owing at C4-5, C5-6, and C6-7 with endplate irregularities. There there is bone marrow edema at C3-4. There is diffusely mildly hyperintense signal at the C3-4 intervertebral disc space noted on ST IR sequence. There is mild edema in the prevertebral space at C3 and C4. There is multilevel bilateral facet DJD of varying degrees, which is moderate on the left at C2-3, severe on the left at C3-4, severe on the right at C5-6, moderate on the right at C7-T1, and moderate to severe on the left at C7-T1. Disc-osteophyte complexes (mostly broad-based) protrude into the anterior aspect of sp inal canal throughout all levels from see 2-3 through C7-T1. Moderate size and large uncinate process osteophytes encroach upon bilateral neural foramina from C3-4 through C7-T1. Bilateral degene rative facet hypertrophy contributes to neural foraminal stenosis. C1-2: Moderate central spinal canal stenosis mostly on developmental basis. C2-3: Moderate-severe central spinal canal stenosis. No high-grade neural foraminal stenosis. C3-4: Very severe central spinal canal stenosis due to broad-based disc-osteophyte complex deeply ind enting the spinal cord anteriorly, and thickened ligamentum flavum indenting the spinal cord posteriorly. These result in very severe central spinal canal stenosis with obliteration of CSF signa l. Difficult to determine whether or not there is mild intramedullary T2-hyperintense signal. Very severe bilateral neural foraminal stenosis. C3-4: Superimposed focal central disc-osteophyte complex in addition to the broad-based disc-osteophy te complex. Moderate to severe central spinal canal stenosis. Severe bilateral neural foraminal stenosis. C5-6: The severe right facet DJD causes slight grade 1 anterolisthesis of C5 on C6. Severe central sp inal canal stenosis with indentation of ventral surface of spinal cord. Severe bilateral neural foraminal stenosis. C6-7: Moderate central spinal canal stenosis. Moderate bilateral neural foraminal stenosis. C7-T1: The bilateral facet DJD causes mild grade 1 anterolisthesis of C7 on T1. Ligamentum flavum thi ckening. There is severe bilateral neural foraminal stenosis with chronic compression and the formation of exiting bilateral C8 nerve roots. Somewhat severe central spinal canal stenosis. IMPRESSION: 1. Developmentally small caliber spinal canal exacerbated by high-grade cervical spondylosis, with mu ltilevel high-grade degenerative disc disease and facet osteoarthrosis. 2. Multiple levels of severe central spinal canal stenosis and severe neural foraminal stenosis. 3. The worst level is C3-4, where there is very severe chronic central spinal canal stenosis with chr onic cord compression and very severe bilateral neural foraminal stenosis. 4. Bone marrow edema of vertebral bodies at C3-4 probably represents Modic 1 changes. However, signal changes in the prevertebral space raise the small possibility of infectious spondylitis (osteomyelitis-discitis). Recommend clinical and laboratory correlation (e.g. ESR, etc.). Recommend f ollow-up.
--- NOTE | 2020-02-09 15:28 | MRI ---
MRI BRAIN WITH AND WITHOUT CONTRAST: DATE: 02/09/2020 HISTORY: 79-year-old male with ICD-10: "R 26.89, imbalance" TECHNIQUE: Multiplanar, multisequence MRI of the brain obtained pre and post IV injection of gadolinium based co ntrast agent. FINDINGS: There is no obstructive hydrocephalus. There is no midline shift or any other evidence of mass effect . There is no extra-axial fluid collection. There are T2 hyperintense signal abnormalities in the cerebral white matter consistent with chronic ischemic white matter changes due to microvascular athe rosclerosis. The degree of such small vessel disease is difficult to gauge because of patient motion artifact on all images. There is no abnormal enhancement, mass, recent hemorrhage, or restrict ed diffusion. On the postcontrast images, there are apparent filling defects involving posterior inferior portions of the superior sagittal sinus (empty delta sign) and bilateral transverse and sigm oid sinuses. These may represent flow-related artifact or chronic thrombosis (with flow around the clot). IMPRESSION: 1) involutional changes of the brain and chronic ischemic white matter changes. 2) questionable finding regarding dural venous sinuses. Recommend MRI of brain and internal auditory canals, with and without contrast, which should include a specific MRI brain with contrast pulse sequence: Postcontrast T1 MP-RAGE of whole brain, with reconstructions in all 3 planes, which should be performed either on the 1.5 Mariela Siemens magnet at [facility] in [place], or on the 3 Mariela Siemens magnet at [facility]. Also recommend noncontrast MR venogram of the head.
--- NOTE | 2020-02-09 15:33 | RAD ---
EXAM: XR Cerv Sp Ap Lat STANDARD PROVIDED CLINICAL HISTORY: Chronic neck pain. COMPARISON: None FINDINGS: There is prominent motion on the lateral projection which does limit osseous detail. C1 to the cervic othoracic junction is seen on the lateral view. No obvious fracture is identified on provided images. No subluxation is seen. Multilevel degenerative change are seen including multilevel osteophy kishore and narrowing of the intervertebral disc spaces at all levels. Scattered facet degenerative changes are present. Interspinous distances and prevertebral soft tissues are within normal limits. V ascular calcifications overlie the right neck. Degenerative change seen in the visualized upper thoracic spine. IMPRESSION: 1. Limited exam due to motion artifact on the lateral projection which limits osseous detail, but no obvious displaced fracture is seen, and there is no subluxation. 2. Multilevel degenerative changes in the cervical spine.
--- NOTE | 2020-02-09 15:36 | RAD ---
EXAM: XR Lumbar Spine 2 Or 3 View PROVIDED CLINICAL HISTORY: Chronic low back pain. COMPARISON: None FINDINGS: 5 nonrib-bearing lumbar-type vertebral bodies are present. Multilevel osteophytes are seen with large anterior bridging osteophytes at the L3-4 and L4-5 levels. There is narrowing of the intervertebral disc spaces at all levels greatest involving the lower lumbar spine. Endplate degenera tive changes are also present lower lumbar spine. Laminectomy defects are present at the L3 and L4 levels. Vertebral body heights are within normal limits. No fracture or subluxation is seen involving lumbar spine. There does appear to be pseudoarticulation of the lateral masses of L5 with S1. Multiple surgical clips overlie the pelvis. IMPRESSION: Multilevel degenerative changes lumbar spine Postoperative changes related to laminectomy defects at L3 and L4.
--- NOTE | 2020-02-09 17:14 | MRI ---
MRI OF THE LUMBAR SPINE WITHOUT CONTRAST: 02/09/20 HISTORY: M48.062 spinal stenosis lumbar region. COMPARISON: MRI of the lumbar spine 2011. FINDINGS: Multiple cystic kidneys. No hydronephrosis. No retroperitoneal or periaortic adenopathy is appreciate d. Paraspinal musculature is symmetric. No marrow infiltrative process. Interosseous hemangioma of L2 is similar to the comparison exam. High grade Modic type II end plate changes L5-S1. Levels are as follows: L1-2: High grade degenerative disc space height loss with circumferential disc bulge. Moderate facet arthrosis with facet joint effusions. Spinal canal is narrowed to approximately 5 mm. Moderate bilate ral neural foraminal narrowing with traversing nerve root abutment. There is also right exiting nerve root abutment. L2-3: Advanced degenerative disc space height loss with circumferential disc osteophyte complex. Ther e is high grade spinal canal narrowing to approximately 4 to 5 mm with crowding of the nerve roots. M oderate right and mild left hypertrophic facet arthrosis. Moderate to severe bilateral neural foramin al narrowing with exiting and traversing nerve root abutment. L3-4: Severe degenerative disc space height loss with a large disc osteophyte complex, circumferentia l. Moderate to severe facet arthrosis. Laminectomy change. Severe bilateral neural foraminal narrowin g. The spinal canal is not significantly narrowed measuring approximately 9 mm. L4-5: Severe degenerative disc space height loss with large disc osteophyte complex. Laminectomy navarrete ge. Severe bilateral neural foraminal narrowing with exiting and traversing nerve root abutment. Spin al canal is not significantly narrowed and measures approximately 9 mm. L5-S1: Severe degenerative disc space height loss with fluid in the disc space. Mild to moderate hyp ertrophic facet arthrosis. Large circumferential disc osteophyte complex. Severe bilateral neural for aminal narrowing with exiting nerve root abutment and abutment of the bilateral S1 nerve roots. Spina l canal not significantly narrowed. IMPRESSION: Multilevel severe spondylosis as described. This has progressed from 2012. POS: HOME
== END 2020-02-09 12:14 | disposition home or self-care (01) ==
LOC: BICMRI 12:13
PROVIDERS: ATTEND Family Medicine
DX: G89.4 Chronic pain syndrome (principal); M48.062 Spinal stenosis, lumbar region with neurogenic claudication; M96.1 Postlaminectomy syndrome, not elsewhere classified; M47.816 Spondylosis without myelopathy or radiculopathy, lumbar region; M47.22 Other spondylosis with radiculopathy, cervical region; R26.89 Other abnormalities of gait and mobility; M50.90 Cervical disc disorder, unspecified, unspecified cervical region; R20.2 Paresthesia of skin; M48.02 Spinal stenosis, cervical region; R60.0 Localized edema
CPT/HCPCS: 70553; 72040; 72100; 72141; 72148; 82565; A9579

== ENCOUNTER 2020-02-14 08:28 | Outpatient (CLI) | payer MEDICARE, OTHER ==
--- NOTE | 2020-02-14 09:23 | MRI ---
Magnetic resonance venogram MRV noncontrast: DATE: 02/14/2020 HISTORY: 79-year-old male with disequilibrium R 26.89, imbalance. 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 Source images and 3-D MIP reconstructions. FINDINGS: There is hyperintense signal, consistent with flow related enhancement, in the superior sagittal sinu s, straight sinus, inferior sagittal sinus, bilateral transverse sinuses, bilateral sigmoid sinuses, and upper portions of bilateral internal jugular veins. IMPRESSION: No convincing evidence of dural venous sinus thrombosis.
== END 2020-02-14 08:29 | disposition home or self-care (01) ==
LOC: TBSIIMAG 08:28
PROVIDERS: ATTEND Neurological Surgery
DX: I67.6 Nonpyogenic thrombosis of intracranial venous system (principal)
CPT/HCPCS: 70544

== ENCOUNTER 2020-03-23 06:44 | Outpatient (CLI) | payer MEDICARE, OTHER ==
[2020-03-24 12:08] LABS: SARS-CoV-2 MS2 Positive; SARS-CoV-2 N Gene Negative; SARS-CoV-2 S Gene Negative; SARS-CoV-2 orf1ab Negative
== END 2020-03-23 06:45 | disposition home or self-care (01) ==
LOC: LABBT 06:44
PROVIDERS: ATTEND Neurological Surgery
DX: Z01.812 Encounter for preprocedural laboratory examination (principal); Z11.59 Encounter for screening for other viral diseases; M47.812 Spondylosis without myelopathy or radiculopathy, cervical region
CPT/HCPCS: 87635; U0003

== ENCOUNTER 2020-03-27 05:42 | Day surgery (SDC) | payer MEDICARE, OTHER ==
[2020-03-24 12:09] VITALS: BMI 26.8
--- NOTE | 2020-03-27 00:40 | HP ---
HISTORY OF PRESENT ILLNESS: Mr. Olivier was referred to us over for concerns of hand numbness and instability with an MRI scan of the cervical spine revealing degenerative disease and high-grade stenosis at C3-C4 with signal change in the cervical spinal cord and discussions for potential treatments. PAST MEDICAL HISTORY: Significant for chronic pain syndrome, gout, hypertension, and prostate cancer. PAST SURGICAL HISTORY: Lumbar spinal surgery and unspecified knee surgery. ALLERGIES: NO KNOWN DRUG ALLERGIES. CURRENT MEDICATIONS: 1. Levothyroxine. 2. Baclofen. 3. Rosuvastatin. 4. Lisinopril. 5. Solifenacin succinate. 6. Allopurinol. 7. Calcium. 8. Iron supplementation. PHYSICAL EXAMINATION: The patient is alert and oriented x3. Mild sensory disturbance to diffuse hands bilaterally. Negative Proctor's. Gait is mildly unstable. ASSESSMENT: Cervical myelopathy. PLAN: Dr. Nolen met with the patient, reviewed imaging, advocated for a C3-C4 ACDF. He explained to the patient the risks, benefits, and alternatives to the procedure. The patient expressed understanding and elected to move forward with surgery as discussed. I do believe the patient is mentally competent and capable of making medical decisions for himself. We will move forward with surgery as planned. Job ID: [id number]
[2020-03-27] MEDS ORDERED: Thrombin 5000 UNITS/5 ML VIAL ONE (06:33)
[2020-03-27] MEDS ORDERED: Fentanyl 100 MCG/2 ML VIAL ONE (06:38)
[2020-03-27] MEDS ORDERED: SUGAMMADEX SODIUM 200 MG/2 ML VIAL ONE (06:38)
[2020-03-27 06:50] LABS: Mean Corpuscular HGB CONC 31.5 g/dL (32.0-36.0); Mean Corpuscular Hemoglobin 28.8 pg (27.0-31.0); Mean Corpuscular Volume 91.4 fL (78.0-98.0); Mean Platelet Volume 8.5 fL (7.4-10.4); Platelet Count 180 thou/uL (130-400); RBC Distribution Width 15.3 % (11.5-14.5); Red Blood Cell (RBC) Count 4.52 mill/uL (4.70-6.10); White Blood Cell (WBC) Count 5.6 thou/uL (4.8-10.8)
[2020-03-27 07:09] LABS: Anion Gap 13 mmol/L (10-20); BUN (Urea Nitrogen) 28 mg/dL (8.4-25.7); Calc. Creatinine Clearance 56 mL/min (70-130); Calcium 9.9 mg/dL (7.8-10.44); Carbon Dioxide 23 mmol/L (23-31); Chloride 108 mmol/L (98-107); Estimated GFR-MDRD 61; Glucose 94 mg/dL (83-110); Potassium 4.7 mmol/L (3.5-5.1); Sodium 139 mmol/L (136-145)
[2020-03-27 08:40] LABS: PTT 29.8 sec (22.9-36.1); Prothrombin Time 12.7 sec (12.0-14.7)
--- NOTE | 2020-03-27 08:42 | OP ---
DATE OF PROCEDURE: 03/27/2020 BONE DRIER OPERATOR: Corey Courtney PA-C INDICATION: Pain and pertinent neurological decline. DIAGNOSIS: Cervical spondylotic myelopathy. PROCEDURE PERFORMED: Anterior cervical diskectomy and fusion, C3-C4. ANESTHESIA: General. DESCRIPTION OF PROCEDURE: The patient was brought into the operating room and placed under general anesthesia. He was placed on the table in a supine position. A transverse incision was planned over the lateral aspect of the neck on the right. After prepping and draping and after an appropriate preoperative pause, the incision was created. The underlying platysma muscle was identified and incised. A blunt tissue plane anterior to the sternocleidomastoid muscle was used to gain access to the prevertebral space. Self-retaining retractors were placed in the wound for optimal exposure. After confirming the appropriate level of C-arm fluoroscopy, an annulotomy was performed in the C3-C4 disk space. All disk material as well as anterior and posterior osteophytes were removed. After completing the decompression, an 8-mm lordotic PEEK cage packed with allograft and autograft material was placed within the interbody space. An anterior cervical plate was then fashioned to the front of spine and secured with a total of 4 fixed screws. Midline and lateral structures were then inspected and found to be free from significant trauma. The wound was irrigated. Hemostasis was maintained throughout. The wound was then closed in anatomic layers and a pressure dressing was applied. There were no known procedural complications. Job ID: [id number]
[2020-03-27] MEDS ORDERED: Tamsulosin HCl 0.4 MG CAP ONE (08:47)
[2020-03-27] MEDS ORDERED: Acetaminophen 325 MG TAB ONE (10:26)
[2020-03-27] MEDS ORDERED: Dexamethasone 20 MG/5 ML VIAL ONE (12:34)
[2020-03-27] MEDS ORDERED: PHENYLEPHRINE-NS 100 MCG/ML 10 ML SYRINGE ONE (12:34)
[2020-03-27] MEDS ORDERED: Ondansetron PF 4 MG/2 ML Vial ONE (12:34)
[2020-03-27] MEDS ORDERED: PROPOFOL 200 MG/20 ML VIAL ONE (12:34)
[2020-03-27] MEDS ORDERED: Rocuronium Bromide 10 MG/ML (10ML VIAL) ONE (12:34)
[2020-03-27] MEDS ORDERED: Lidocaine 1% PF 5 ML VIAL ONE ×2 (12:34)
--- NOTE | 2020-03-29 17:53 | EKG ---
Test Reason : PREOP Blood Pressure : / mmHG Vent. Rate : 065 BPM Atrial Rate : 065 BPM P-R Int : 188 ms QRS Dur : 100 ms QT Int : 378 ms P-R-T Axes : 073 035 051 degrees QTc Int : 393 ms Normal sinus rhythm Normal ECG When compared with ECG of 08-NOV-2019 10:50, No significant change was found Confirmed by SAMUEL KEMP (2) on 03/29/2020 5:53:25 PM Referred By: Aggie BRAR Confirmed By:SAMUEL KEMP
== END 2020-03-27 10:50 | disposition home or self-care (01) ==
LOC: SDC 05:42
PROVIDERS: ATTEND Neurological Surgery
PROC: 0RG10A0 Fusion of Cervical Vertebral Joint with Interbody Fusion Device, Anterior Approach, Anterior Column, Open Approach (ICD-10-PCS; principal; 2020-03-27)
PROC: 0RT30ZZ Resection of Cervical Vertebral Disc, Open Approach (ICD-10-PCS; 2020-03-27)
DX: M47.12 Other spondylosis with myelopathy, cervical region (principal); M48.02 Spinal stenosis, cervical region; G89.4 Chronic pain syndrome; M10.9 Gout, unspecified; I10 Essential (primary) hypertension; Z79.899 Other long term (current) drug therapy
CPT/HCPCS: 76000; 80048; 85027; 85610; 85730; 93005; 93010; C1713; C1776; J0690; J1100; J2001; J2405; J2704; J3010

== ENCOUNTER 2020-05-19 07:45 | Outpatient (CLI) | payer MEDICARE, OTHER ==
[2020-05-19 14:14] LABS: Prothrombin Time 13.5 sec (12.0-14.7)
[2020-05-19 14:16] LABS: #Eosinphils 0.2 thou/uL (0.0-0.7); #Lymphocytes 2.8 thou/uL (1.20-3.40); #Monocytes 0.6 thou/uL (0.11-0.59); #Neutrophils 2.5 thou/uL (1.40-6.50); %Basophils 0.8 % (0.0-1.0); %Eosinophils 2.5 % (0.0-10.0); %Lymphocytes 45.9 % (21.0-51.0); %Monocytes 9.5 % (0.0-10.0); %Neutrophils 41.3 % (42.0-75.0); Hemoglobin 12.3 g/dL (14.0-18.0); Mean Corpuscular Hemoglobin 29.4 pg (27.0-31.0); Mean Corpuscular Volume 94.9 fL (78.0-98.0); Mean Platelet Volume 8.7 fL (7.4-10.4); Platelet Count 219 thou/uL (130-400); RBC Distribution Width 15.6 % (11.5-14.5); Red Blood Cell (RBC) Count 4.18 mill/uL (4.70-6.10)
[2020-05-19 14:49] LABS: Bacteria/HPF None Seen HPF (None Seen); Bilirubin Negative (Negative); Blood, Urine Negative (Negative); Clarity Clear (Clear); Glucose, Urine (Dipstick) Normal (Negative); Ketone, Urine Negative (Negative); Leukocyte Negative Leu/uL (Negative); Mucous/LPF 1+ LPF (<2+); Nitrite Negative (Negative); Protein, Urine (Dipstick) Negative (Neg-Trace); RBC/HPF None Seen HPF (0-3); Specific Gravity, Urine 1.023 (1.002-1.036); Squamous Epithelial 0-3 HPF (0-3); Urobilinogen Normal mg/dL (Less than 2); WBC/HPF 0-3 HPF (0-3); pH, Urine 5.5 (5.0-9.0)
[2020-05-19 14:52] LABS: Urine Culture Reflex No No
[2020-05-19 15:10] LABS: Anion Gap 17 mmol/L (10-20); BUN (Urea Nitrogen) 25 mg/dL (8.4-25.7); Calc. Creatinine Clearance 0 mL/min (70-130); Calcium 10.2 mg/dL (7.8-10.44); Carbon Dioxide 25 mmol/L (23-31); Chloride 105 mmol/L (98-107); Estimated GFR-MDRD 56; Glucose 83 mg/dL (83-110); Potassium 4.7 mmol/L (3.5-5.1); Sodium 142 mmol/L (136-145)
--- NOTE | 2020-05-19 16:48 | EKG ---
Test Reason : PREOP Blood Pressure : / mmHG Vent. Rate : 084 BPM Atrial Rate : 084 BPM P-R Int : 182 ms QRS Dur : 086 ms QT Int : 356 ms P-R-T Axes : 078 059 062 degrees QTc Int : 420 ms Normal sinus rhythm Normal ECG No previous ECGs available Confirmed by DR. Raudel BRIONES ([id number]) on 05/19/2020 4:48:36 PM Referred By: Sasha HILL Confirmed By:DR. Raudel BRIONES
[2020-05-20 14:05] LABS: SARS-CoV-2 MS2 Positive; SARS-CoV-2 N Gene Negative; SARS-CoV-2 S Gene Negative; SARS-CoV-2 by NAA Not Detected (NotDetected); SARS-CoV-2 orf1ab Negative
== END 2020-05-19 07:46 | disposition home or self-care (01) ==
LOC: LABBT 07:45
PROVIDERS: ATTEND Urology
DX: Z01.818 Encounter for other preprocedural examination (principal); C61 Malignant neoplasm of prostate; N32.0 Bladder-neck obstruction; N39.498 Other specified urinary incontinence; N52.9 Male erectile dysfunction, unspecified; M54.12 Radiculopathy, cervical region; Z20.828 Contact with and (suspected) exposure to other viral communicable diseases
CPT/HCPCS: 80048; 81001; 85025; 85610; 85730; 93005; U0003; 87635; 93010

== ENCOUNTER 2020-10-20 07:35 | Outpatient (CLI) | payer MEDICARE, OTHER ==
[2020-10-20 11:34] LABS: Bilirubin Neg (Negative); Blood, Urine Negative (Negative); Clarity Clear (Clear); Glucose, Urine (Dipstick) Normal (Negative); Ketone, Urine Negative (Negative); Leukocyte Negative (Negative); Nitrite Negative (Negative); Protein, Urine (Dipstick) Negative (Neg-Trace); Specific Gravity, Urine 1.015 (1.002-1.036); Urobilinogen Normal mg/dL (Less than 2)
[2020-10-20 11:53] LABS: PTT 24.2 sec (22.0-33.0); Prothrombin Time 10.9 sec (9.5-12.1)
[2020-10-20 11:55] LABS: Anion Gap 16 mmol/L (10-20); BUN (Urea Nitrogen) 23 mg/dL (8.4-25.7); Calc. Creatinine Clearance 0 mL/min (70-130); Calcium 9.9 mg/dL (7.8-10.44); Carbon Dioxide 24 mmol/L (23-31); Chloride 107 mmol/L (98-107); Glucose 85 mg/dL (83-110); Hemoglobin 11.4 g/dL (14.0-18.0); Mean Corpuscular Hemoglobin 28.1 PG (27.0-33.0); Mean Corpuscular Volume 90.6 fl (80.0-100.0); Mean Platelet Volume 11.5 fl (7.4-10.4); Platelet Count 173 10x3/uL (130-400); Potassium 4.7 mmol/L (3.5-5.1); RBC Distribution Width 17.3 % (11.5-14.5); Red Blood Cell (RBC) Count 4.06 10x6/uL (4.40-5.80); Sodium 142 mmol/L (136-145); White Blood Cell (WBC) Count 4.7 10x3/uL (4.5-11.0)
[2020-10-20 12:02] LABS: Bacteria/HPF None Seen HPF (None Seen); RBC/HPF None Seen HPF (0-3); Squamous Epithelial 0-3 HPF (0-3); WBC/HPF None Seen HPF (0-3)
[2020-10-20 20:23] LABS: SARS-CoV-2 PCR by NAA Not Detected (NotDetected)
--- NOTE | 2020-10-24 11:36 | EKG ---
Test Reason : Blood Pressure : / mmHG Vent. Rate : 083 BPM Atrial Rate : 083 BPM P-R Int : 186 ms QRS Dur : 078 ms QT Int : 362 ms P-R-T Axes : 082 063 069 degrees QTc Int : 425 ms Normal sinus rhythm Normal ECG When compared with ECG of 19-MAY-2020 12:35, No significant change was found Confirmed by ALBARO PAPPAS ([id number]) on 10/24/2020 11:35:31 AM Referred By: SERGIO Confirmed By:ALBARO PAPPAS
== END 2020-10-20 07:36 | disposition home or self-care (01) ==
LOC: LABBT 07:35
PROVIDERS: ATTEND Urology
DX: Z01.818 Encounter for other preprocedural examination (principal); Z01.812 Encounter for preprocedural laboratory examination; C61 Malignant neoplasm of prostate; N32.0 Bladder-neck obstruction; N39.498 Other specified urinary incontinence; N52.9 Male erectile dysfunction, unspecified; M54.12 Radiculopathy, cervical region; Z20.822 Contact with and (suspected) exposure to COVID-19
CPT/HCPCS: 80048; 81001; 85027; 85610; 85730; 87086; 93005; U0003; U0005; 87635; 93010

== ENCOUNTER 2020-10-25 06:46 | Day surgery (SDC) | payer MEDICARE, OTHER ==
[2020-10-23 15:41] VITALS: BMI 26.0
[2020-10-25] MEDS ORDERED: Levofloxacin 500 mg/D5W 100 ml Premix Bag ONE (07:53)
[2020-10-25] MEDS ORDERED: Fentanyl 100 MCG/2 ML VIAL ONE (09:22)
[2020-10-25] MEDS ORDERED: Dexamethasone 20 MG/5 ML VIAL ONE (09:30)
[2020-10-25] MEDS ORDERED: PHENYLEPHRINE-NS 100 MCG/ML 10 ML SYRINGE ONE (09:30)
[2020-10-25] MEDS ORDERED: Ondansetron PF 4 MG/2 ML Vial ONE (09:30)
[2020-10-25] MEDS ORDERED: PROPOFOL 200 MG/20 ML VIAL ONE (09:30)
[2020-10-25] MEDS ORDERED: Lidocaine 1% PF 5 ML VIAL ONE (09:30)
[2020-10-25] MEDS ORDERED: Iothalamate Meglumine 60% 50 ML VIAL FS ONE (09:59)
[2020-10-25] MEDS ORDERED: Phenazopyridine HCl 100 MG TAB ONE (10:09)
[2020-10-25] MEDS ORDERED: Oxybutynin 5 MG TAB ONE (10:09)
--- NOTE | 2020-10-26 07:22 | OP ---
DATE OF PROCEDURE: 10/25/2020 PREOPERATIVE DIAGNOSES: 1. A 79-year-old male, pathologic T3 N0, [place] score 3+3, status post radical prostatectomy by Dr. Leroy Higginbotham in 2004. 2. Postprostatectomy incontinence. 3. Recurrent bladder neck contracture, dense. POSTOPERATIVE DIAGNOSES: 1. A 79-year-old male, pathologic T3 N0, [place] score 3+3, status post radical prostatectomy by Dr. Leroy Higginbotham in 2004. 2. Postprostatectomy incontinence. 3. Recurrent bladder neck contracture, dense. PROCEDURES PERFORMED: Cystoscopy, balloon dilation of bladder neck contracture, 18-Mozambican Unga tip Villanueva catheter placement. ANESTHESIA: LMA. COMPLICATIONS: None apparent. DISPOSITION: To recovery room in stable condition. INTRAOPERATIVE FINDINGS: Bladder neck contracture, recurrent, about 8 to 10-Mozambican caliber. Bladder grossly unremarkable. INDICATIONS FOR PROCEDURE AND HISTORY: Mr. Olivier is a pleasant male with pathologic T3 N0, [place]ston score 3+3 prostate cancer, by Dr. Higginbotham underwent radical prostatectomy with recurrent bladder neck contracture. He presents today for interval bladder neck contracture dilatation. Risks and complications of the procedure have been discussed with him in detail including, but not limited to, bleeding, pain, infection, injury to adjacent organs, urosepsis. All questions answered to his satisfaction, desired to proceed without reservation. DESCRIPTION OF PROCEDURE: After an informed consent was signed, the patient was taken to the operating room, placed in the dorsal lithotomy position with the genital area prepped and draped in the usual surgical sterile fashion. Bilateral LYLY hose and broad-spectrum antibiotics were provided. A 21-Mozambican cystoscope was utilized for cystoscopy, which demonstrated normal anterior urethra. Again at the level of the bladder neck, there was a bladder neck contracture recurrence, about 8 to 10-Mozambican caliber. An open-ended catheter was able to be passed through into the level of the bladder and a 0.035 Super Stiff wire placed to the level of the bladder. I was able to gently pass the 21-Mozambican scope to the level of the bladder. The bladder was surveyed, demonstrating no stone, no lesions of concern. Using [employer] 21-[place] balloon dilator, we dilated the bladder neck contracture and held pressure at maximum pressure. Subsequently, the balloon was deflated, and an 18-Mozambican Unga tip Villanueva catheter was able to be passed without significant issues. 10 mL insufflated and attached to leg bag, gravity bag. He is discharged with the leg bag, will follow up for nurse visit next week for catheter removal. The patient is scheduled for Lupron on November 14, I will see him that day for physician followup visit as well. Postop medications sent to the patient's pharmacy. Job ID: [id number]
== END 2020-10-25 12:07 | disposition home or self-care (01) ==
LOC: SDC 06:46
PROVIDERS: ATTEND Urology
PROC: 0TJB8ZZ Inspection of Bladder, Via Natural or Artificial Opening Endoscopic (ICD-10-PCS; principal; 2020-10-25)
DX: N32.0 Bladder-neck obstruction (principal); N39.498 Other specified urinary incontinence; C61 Malignant neoplasm of prostate; N52.9 Male erectile dysfunction, unspecified; M54.12 Radiculopathy, cervical region; M10.9 Gout, unspecified; I10 Essential (primary) hypertension; F17.220 Nicotine dependence, chewing tobacco, uncomplicated; Z79.899 Other long term (current) drug therapy
CPT/HCPCS: J1100; J1956; J2405; J2704; J3010

== ENCOUNTER 2020-11-22 08:27 | Emergency (ER) | payer MEDICARE ==
[2020-11-22] MEDS ORDERED: Boostrix 0.5 ML (Tdap) VIAL ONE (09:03)
== END 2020-11-22 09:35 | disposition home or self-care (01) ==
LOC: ERS 08:27
DX: S61.431A Puncture wound without foreign body of right hand, initial encounter (principal); S61.236A Puncture wound without foreign body of right little finger without damage to nail, initial encounter; E78.5 Hyperlipidemia, unspecified; I10 Essential (primary) hypertension; M10.9 Gout, unspecified; Z23 Encounter for immunization; E78.00 Pure hypercholesterolemia, unspecified; F17.220 Nicotine dependence, chewing tobacco, uncomplicated; Z79.899 Other long term (current) drug therapy; W26.8XXA Contact with other sharp object(s), not elsewhere classified, initial encounter
CPT/HCPCS: 90471; 90715

== ENCOUNTER 2021-04-18 06:42 | Day surgery (SDC) | payer MEDICARE, OTHER ==
[2021-04-17 14:23] VITALS: BMI 26.4
== END 2021-04-18 13:15 | disposition home or self-care (01) ==
LOC: SDC 06:42
PROVIDERS: ATTEND Urology
PROC: 0TJB8ZZ Inspection of Bladder, Via Natural or Artificial Opening Endoscopic (ICD-10-PCS; principal; 2021-04-18)
DX: N32.0 Bladder-neck obstruction (principal); Z90.79 Acquired absence of other genital organ(s); Z96.653 Presence of artificial knee joint, bilateral; Z98.1 Arthrodesis status; Z98.890 Other specified postprocedural states; Z79.899 Other long term (current) drug therapy
CPT/HCPCS: J1956; J2405; J2704; J3010

== ENCOUNTER 2021-10-05 10:52 | Outpatient (CLI) | payer MEDICARE, OTHER ==
[2021-10-05 12:40] LABS: Bilirubin Neg (Negative); Blood, Urine Negative (Negative); Clarity Clear (Clear); Glucose, Urine (Dipstick) Normal (Negative); Ketone, Urine Negative (Negative); Leukocyte Negative (Negative); Nitrite Negative (Negative); Protein, Urine (Dipstick) Negative (Neg-Trace)
[2021-10-05 12:42] LABS: Hemoglobin 10.2 g/dL (13.5-17.5); Mean Corpuscular HGB CONC 30.1 g/dL (32.0-36.0); Mean Corpuscular Hemoglobin 27.7 pg (27.0-33.0); Mean Corpuscular Volume 92.1 fl (81.2-95.1); Mean Platelet Volume 10.6 fl (7.4-10.4); Platelet Count 216 10x3/uL (150-450); RBC Distribution Width 16.7 % (11.5-14.5); Red Blood Cell (RBC) Count 3.68 10x6/uL (4.32-5.72); White Blood Cell (WBC) Count 4.7 10x3/uL (3.5-10.5)
[2021-10-05 12:54] LABS: Bacteria/HPF None Seen HPF (None Seen); RBC/HPF 0-3 HPF (0-3); WBC/HPF 0-3 HPF (0-3)
[2021-10-05 13:00] LABS: PTT 25.9 sec (22.0-33.0); Prothrombin Time 10.8 sec (9.5-12.1)
[2021-10-05 13:01] LABS: Anion Gap 14 mmol/L (10-20); BUN (Urea Nitrogen) 20 mg/dL (8.4-25.7); Calc. Creatinine Clearance 0 mL/min (70-130); Calcium 9.5 mg/dL (7.8-10.44); Carbon Dioxide 25 mmol/L (23-31); Chloride 110 mmol/L (98-107); Glucose 94 mg/dL (83-110); Potassium 4.5 mmol/L (3.5-5.1); Sodium 144 mmol/L (136-145)
[2021-10-06 17:02] LABS: SARS-CoV-2 PCR by NAA Not Detected (NotDetected)
== END 2021-10-05 10:53 | disposition home or self-care (01) ==
LOC: LABBT 10:52
PROVIDERS: ATTEND Urology
DX: Z01.818 Encounter for other preprocedural examination (principal); N32.0 Bladder-neck obstruction; Z20.822 Contact with and (suspected) exposure to COVID-19
CPT/HCPCS: 80048; 81001; 85027; 85610; 85730; 87086; 93005; U0003; U0005; 93010

== ENCOUNTER 2021-10-10 05:48 | Day surgery (SDC) | payer MEDICARE ==
[2021-10-03 13:10] VITALS: BMI 26.4
[2021-10-10] MEDS ORDERED: Fentanyl 100 MCG/2 ML VIAL ONE (08:21)
[2021-10-10] MEDS ORDERED: Levofloxacin 500 mg/D5W 100 ml Premix Bag ONE (08:26)
[2021-10-10] MEDS ORDERED: Lidocaine 1% PF 5 ML VIAL ONE (08:32)
[2021-10-10] MEDS ORDERED: PROPOFOL 200 MG/20 ML VIAL ONE (08:32)
[2021-10-10] MEDS ORDERED: Phenazopyridine HCl 100 MG TAB ONE ×2 (09:18→09:20)
[2021-10-10] MEDS ORDERED: Oxybutynin 5 MG TAB ONE (09:18)
== END 2021-10-10 11:50 | disposition home or self-care (01) ==
LOC: SDC 05:48
PROVIDERS: ATTEND Urology
PROC: 0T7C8ZZ Dilation of Bladder Neck, Via Natural or Artificial Opening Endoscopic (ICD-10-PCS; principal; 2021-10-10)
DX: N32.0 Bladder-neck obstruction (principal); Z85.46 Personal history of malignant neoplasm of prostate; Z79.899 Other long term (current) drug therapy
CPT/HCPCS: J1956; J3010

== ENCOUNTER 2022-03-01 13:22 | Outpatient (CLI) | payer MEDICARE | END 2022-03-01 13:23 | disposition home or self-care (01) | LOC: BICULT 13:22 | PROVIDERS: ATTEND Urology | DX: N28.1 Cyst of kidney, acquired (principal); C61 Malignant neoplasm of prostate; N28.9 Disorder of kidney and ureter, unspecified | CPT/HCPCS: 76770 ==

== ENCOUNTER 2022-03-29 09:27 | Outpatient (CLI) | payer MEDICARE ==
[2022-03-29 10:56] LABS: Hemoglobin 10.1 g/dL (13.5-17.5); Mean Corpuscular HGB CONC 32.1 g/dL (32.0-36.0); Mean Corpuscular Volume 87.3 fl (81.2-95.1); Mean Platelet Volume 10.2 fl (7.4-10.4); Platelet Count 183 10x3/uL (150-450); RBC Distribution Width 17.2 % (11.5-14.5); Red Blood Cell (RBC) Count 3.61 10x6/uL (4.32-5.72); White Blood Cell (WBC) Count 4.3 10x3/uL (3.5-10.5)
[2022-03-29 11:12] LABS: Bilirubin Neg (Negative); Blood, Urine Negative (Negative); Clarity Clear (Clear); Glucose, Urine (Dipstick) Normal (Negative); Ketone, Urine Negative (Negative); Leukocyte Negative (Negative); Nitrite Negative (Negative); PTT 24.5 sec (22.0-33.0); Protein, Urine (Dipstick) Negative (Neg-Trace); Prothrombin Time 10.4 sec (9.5-12.1); Specific Gravity, Urine 1.015 (1.002-1.036); Urobilinogen Normal mg/dL (Less than 2)
[2022-03-29 11:18] LABS: Anion Gap 15 mmol/L (10-20); BUN (Urea Nitrogen) 44 mg/dL (8.4-25.7); Calc. Creatinine Clearance 0 mL/min (70-130); Calcium 10.2 mg/dL (7.8-10.44); Carbon Dioxide 26 mmol/L (23-31); Chloride 105 mmol/L (98-107); Estimated GFR 33; Glucose 111 mg/dL (83-110); Potassium 4.6 mmol/L (3.5-5.1); Sodium 141 mmol/L (136-145)
[2022-03-29 11:21] LABS: Bacteria/HPF None Seen HPF (None Seen); RBC/HPF 0-3 HPF (0-3); Squamous Epithelial 0-3 HPF (0-3); WBC/HPF 0-3 HPF (0-3)
== END 2022-03-29 09:28 | disposition home or self-care (01) ==
LOC: LABBT 09:27
PROVIDERS: ATTEND Urology
DX: Z01.818 Encounter for other preprocedural examination (principal); C61 Malignant neoplasm of prostate; N32.0 Bladder-neck obstruction; N39.498 Other specified urinary incontinence; N28.1 Cyst of kidney, acquired; N28.9 Disorder of kidney and ureter, unspecified; Z20.822 Contact with and (suspected) exposure to COVID-19
CPT/HCPCS: 80048; 81001; 85027; 85610; 85730; 87086; 87811; 93005; 93010

== ENCOUNTER 2022-04-03 07:59 | Day surgery (SDC) | payer MEDICARE ==
[2022-03-29 13:40] VITALS: BMI 26.7
[2022-04-03] MEDS ORDERED: Fentanyl 100 MCG/2 ML VIAL ONE (11:55)
[2022-04-03] MEDS ORDERED: Levofloxacin 500 mg/D5W 100 ml Premix Bag ONE (12:05)
== END 2022-04-03 13:54 | disposition home or self-care (01) ==
LOC: SDC 07:59
PROVIDERS: ATTEND Urology
PROC: 0T7C8ZZ Dilation of Bladder Neck, Via Natural or Artificial Opening Endoscopic (ICD-10-PCS; principal; 2022-04-03)
DX: N32.0 Bladder-neck obstruction (principal); Z85.46 Personal history of malignant neoplasm of prostate; Z79.890 Hormone replacement therapy; Z79.899 Other long term (current) drug therapy
CPT/HCPCS: J1956; J3010

== ENCOUNTER 2022-08-19 08:05 | Emergency (ER) | payer MEDICARE ==
[2022-08-19] MEDS ORDERED: Dexamethasone 10 MG/ML VIAL ONE (09:05)
[2022-08-19] MEDS ORDERED: Ketorolac Tromethamine 30 MG/ML VIAL ONE (09:05)
== END 2022-08-19 09:20 | disposition home or self-care (01) ==
LOC: ERS 08:05
DX: M54.50 Low back pain, unspecified (principal); I10 Essential (primary) hypertension; E78.5 Hyperlipidemia, unspecified; F17.220 Nicotine dependence, chewing tobacco, uncomplicated; Z79.899 Other long term (current) drug therapy
CPT/HCPCS: 96372; 99283; J1100; J1885

== ENCOUNTER 2022-09-18 10:01 | Outpatient (CLI) | payer MEDICARE ==
[2022-09-18 11:12] LABS: Hemoglobin 10.8 g/dL (13.5-17.5); Mean Corpuscular Hemoglobin 28.1 pg (27.0-33.0); Platelet Count 212 10x3/uL (150-450); RBC Distribution Width 17.1 % (11.5-14.5); Red Blood Cell (RBC) Count 3.84 10x6/uL (4.32-5.72); White Blood Cell (WBC) Count 4.8 10x3/uL (3.5-10.5)
[2022-09-18 11:26] LABS: INR-International Normal Ratio 0.9; PTT 25.2 sec (22.0-33.0); Prothrombin Time 10.3 sec (9.5-12.1)
[2022-09-18 11:30] LABS: Anion Gap 15 mmol/L (10-20); BUN (Urea Nitrogen) 21 mg/dL (8.4-25.7); Calc. Creatinine Clearance 0 mL/min (70-130); Calcium 10.2 mg/dL (7.8-10.44); Carbon Dioxide 25 mmol/L (23-31); Chloride 108 mmol/L (98-107); Estimated GFR 57; Glucose 99 mg/dL (83-110); Potassium 4.4 mmol/L (3.5-5.1); Sodium 144 mmol/L (136-145)
[2022-09-18 11:48] LABS: Bilirubin Neg (Negative); Blood, Urine Negative (Negative); Clarity Clear (Clear); Glucose, Urine (Dipstick) Normal (Negative); Ketone, Urine Negative (Negative); Leukocyte Negative (Negative); Nitrite Negative (Negative); Protein, Urine (Dipstick) Negative (Neg-Trace); Specific Gravity, Urine 1.015 (1.005-1.030); Urobilinogen Normal mg/dL (Less than 2)
[2022-09-18 12:09] LABS: Bacteria/HPF None Seen HPF (None Seen); RBC/HPF 0-3 HPF (0-3); Squamous Epithelial 0-3 HPF (0-3); WBC/HPF None Seen HPF (0-3)
== END 2022-09-18 10:02 | disposition home or self-care (01) ==
LOC: LABBT 10:01
PROVIDERS: ATTEND Urology
DX: Z01.812 Encounter for preprocedural laboratory examination (principal)
CPT/HCPCS: 80048; 81001; 85027; 85610; 85730; 87086; 93005; 93010

== ENCOUNTER 2022-10-02 06:12 | Day surgery (SDC) | payer MEDICARE ==
[2022-10-01 10:15] VITALS: BMI 25.6
[2022-10-02] MEDS ORDERED: Triamcinolone 40 MG/ML VIAL IM SCH (07:00)
[2022-10-02] MEDS ORDERED: Triamcinolone 40 MG/ML VIAL ONE (07:01)
[2022-10-02] MEDS ORDERED: Triamcinolone Acetonide 40 MG in Sodium Chloride 0.9% 4 ML FS SCH (07:15)
[2022-10-02] MEDS ORDERED: Iopamidol 45 ML ONE (09:40)
[2022-10-02] MEDS ORDERED: Levofloxacin 500 mg/D5W 100 ml Premix Bag ONE (09:49)
[2022-10-02] MEDS ORDERED: Ondansetron PF 4 MG/2 ML Vial ONE (09:57)
[2022-10-02] MEDS ORDERED: ePHEDrine 50 MG/ML VIAL ONE (09:57)
[2022-10-02] MEDS ORDERED: PROPOFOL 200 MG/20 ML VIAL ONE (09:57)
[2022-10-02] MEDS ORDERED: Dexamethasone 20 MG/5 ML VIAL ONE (09:57)
[2022-10-02] MEDS ORDERED: Lidocaine 1% PF 5 ML VIAL ONE (09:57)
[2022-10-02] MEDS ORDERED: Phenazopyridine HCl 100 MG TAB ONE (10:53)
[2022-10-02] MEDS ORDERED: Oxybutynin 5 MG TAB ONE (10:53)
== END 2022-10-02 11:50 | disposition home or self-care (01) ==
LOC: SDC 06:12
PROVIDERS: ATTEND Urology
PROC: 0T7C8ZZ Dilation of Bladder Neck, Via Natural or Artificial Opening Endoscopic (ICD-10-PCS; principal; 2022-10-02)
DX: N32.0 Bladder-neck obstruction (principal); R32 Unspecified urinary incontinence; M10.9 Gout, unspecified; I10 Essential (primary) hypertension; F17.220 Nicotine dependence, chewing tobacco, uncomplicated; Z85.46 Personal history of malignant neoplasm of prostate; Z79.899 Other long term (current) drug therapy; Z79.890 Hormone replacement therapy
CPT/HCPCS: C1769; J1100; J1956; J2405; J2704; J3301; J3490; Q9967

== ENCOUNTER 2023-03-17 11:01 | Outpatient (CLI) | payer MEDICARE ==
[2023-03-17 12:00] LABS: Hemoglobin 9.7 g/dL (13.5-17.5); Mean Corpuscular HGB CONC 32.6 g/dL (32.0-36.0); Mean Corpuscular Hemoglobin 28.4 pg (27.0-33.0); Mean Corpuscular Volume 87.4 fl (81.2-95.1); Mean Platelet Volume 10.4 fl (7.4-10.4); Platelet Count 193 10x3/uL (150-450); RBC Distribution Width 17.5 % (11.5-14.5); Red Blood Cell (RBC) Count 3.41 10x6/uL (4.32-5.72); White Blood Cell (WBC) Count 4.6 10x3/uL (3.5-10.5)
[2023-03-17 12:10] LABS: PTT 26.8 sec (22.0-33.0); Prothrombin Time 10.8 sec (9.5-12.1)
[2023-03-17 12:13] LABS: Anion Gap 12 mmol/L (10-20); BUN (Urea Nitrogen) 33 mg/dL (8.4-25.7); Calc. Creatinine Clearance 0 mL/min (70-130); Calcium 9.9 mg/dL (7.8-10.44); Carbon Dioxide 23 mmol/L (23-31); Chloride 110 mmol/L (98-107); Estimated GFR 42; Glucose 111 mg/dL (83-110); Potassium 4.1 mmol/L (3.5-5.1); Sodium 141 mmol/L (136-145)
[2023-03-17 12:22] LABS: Bilirubin Neg (Negative); Blood, Urine Negative (Negative); Glucose, Urine (Dipstick) Normal (Negative); Ketone, Urine Negative (Negative); Leukocyte Negative (Negative); Nitrite Negative (Negative); Protein, Urine (Dipstick) Negative (Neg-Trace); Specific Gravity, Urine 1.015 (1.005-1.030); Urobilinogen Normal mg/dL (Less than 2)
[2023-03-17 12:26] LABS: Clarity Clear (Clear)
[2023-03-17 12:37] LABS: Bacteria/HPF None Seen HPF (None Seen); RBC/HPF 0-3 HPF (0-3); Squamous Epithelial None Seen HPF (0-3); WBC/HPF 0-3 HPF (0-3)
== END 2023-03-17 11:02 | disposition home or self-care (01) ==
LOC: LABBT 11:01
PROVIDERS: ATTEND Urology
DX: Z01.818 Encounter for other preprocedural examination (principal); N32.0 Bladder-neck obstruction
CPT/HCPCS: 80048; 81001; 85027; 85610; 85730; 87086; 93005; 93010

== ENCOUNTER 2023-10-01 05:44 | Day surgery (SDC) | payer MEDICARE ==
[2023-09-24 08:07] VITALS: BMI 24.1
[2023-10-01] MEDS ORDERED: Triamcinolone 40 MG/ML VIAL IJ SCH (06:15)
[2023-10-01] MEDS ORDERED: Triamcinolone 40 MG/ML VIAL ONE (07:22)
[2023-10-01] MEDS ORDERED: PROPOFOL 20 ML ONE (07:47)
[2023-10-01] MEDS ORDERED: LevoFLOXacin D5W 500 mg (100 mL) BAG ONE (07:47)
[2023-10-01] MEDS ORDERED: fentaNYL PF 100 MCG/2 ML SYRINGE ONE (07:47)
[2023-10-01] MEDS ORDERED: Lidocaine 1% PF 5 ML VIAL ONE (07:47)
[2023-10-01] MEDS ORDERED: Dexamethasone 4 mg/ml Vial ONE (08:49)
[2023-10-01] MEDS ORDERED: Ondansetron PF 4 MG/2 ML Vial ONE (08:49)
== END 2023-10-01 11:20 | disposition home or self-care (01) ==
LOC: SDC 05:44
PROVIDERS: ATTEND Urology
PROC: 0T7C8ZZ Dilation of Bladder Neck, Via Natural or Artificial Opening Endoscopic (ICD-10-PCS; principal; 2023-10-01)
DX: C61 Malignant neoplasm of prostate (principal); N32.0 Bladder-neck obstruction; N39.498 Other specified urinary incontinence; N28.1 Cyst of kidney, acquired; N28.9 Disorder of kidney and ureter, unspecified; M10.9 Gout, unspecified; Z79.890 Hormone replacement therapy; Z79.899 Other long term (current) drug therapy; Z85.46 Personal history of malignant neoplasm of prostate; Z98.890 Other specified postprocedural states; Z96.652 Presence of left artificial knee joint
CPT/HCPCS: J1100; J1956; J2405; J2704; J3301

== ENCOUNTER 2024-03-24 11:32 | Outpatient (CLI) | payer MEDICARE ==
[2024-03-24 13:20] LABS: Bilirubin Neg (Negative); Blood, Urine Negative (Negative); Glucose, Urine (Dipstick) Normal (Negative); Ketone, Urine Negative (Negative); Leukocyte Negative (Negative); Nitrite Negative (Negative); Protein, Urine (Dipstick) 15 mg/dl (Neg-Trace)
[2024-03-24 13:23] LABS: Hematocrit 33.7 % (38.8-50.0); Mean Corpuscular HGB CONC 32.6 g/dL (32.0-36.0); Mean Corpuscular Hemoglobin 29.1 pg (27.0-33.0); Mean Corpuscular Volume 89.2 fL (81.2-95.1); Mean Platelet Volume 10.1 fL (7.4-10.4); Platelet Count 209 10x3/uL (150-450); RBC Distribution Width 16.7 % (11.5-14.5); Red Blood Cell (RBC) Count 3.78 10x6/uL (4.32-5.72)
[2024-03-24 13:24] LABS: PTT 26.2 sec (22.0-33.0)
[2024-03-24 13:29] LABS: Anion Gap 12 mmol/L (10-20); BUN (Urea Nitrogen) 20 mg/dL (8.4-25.7); Calc. Creatinine Clearance 0 mL/min (70-130); Carbon Dioxide 29 mmol/L (23-31); Chloride 109 mmol/L (98-107); Estimated GFR 59; Glucose 84 mg/dL (83-110); Potassium 4.5 mmol/L (3.5-5.1); Sodium 145 mmol/L (136-145)
[2024-03-24 13:58] LABS: Clarity Clear (Clear)
[2024-03-24 14:21] LABS: RBC/HPF 0-3 HPF (0-3); WBC/HPF 0-3 HPF (0-3)
[2024-03-24 14:22] LABS: Bacteria/HPF Rare-Few HPF (None Seen)
== END 2024-03-24 11:33 | disposition home or self-care (01) ==
LOC: LABBT 11:32
PROVIDERS: ATTEND Urology
DX: Z01.818 Encounter for other preprocedural examination (principal); C61 Malignant neoplasm of prostate; N32.0 Bladder-neck obstruction; N39.498 Other specified urinary incontinence; N28.1 Cyst of kidney, acquired; N28.9 Disorder of kidney and ureter, unspecified
CPT/HCPCS: 80048; 81001; 85027; 85610; 85730; 87086; 93005; 93010

== ENCOUNTER 2024-10-05 09:55 | Outpatient (CLI) | payer MEDICARE ==
[2024-10-05 11:58] LABS: #Basophils 0.03 10x3/uL (0.0-0.2); %Basophils 0.8 % (0.0-1.0); %Eosinophils 1.8 % (0.0-10.0); %Monocytes 11.3 % (0.0-10.0); %Neutrophils 47.8 % (42.0-75.0); Hematocrit 37.8 % (42.0-52.0); Hemoglobin 11.7 g/dL (14.0-18.0); Mean Corpuscular Hemoglobin 28.5 pg (27.0-31.0); Platelet Count 217 10x3/uL (130-400); RBC Distribution Width 16.4 % (11.5-14.5); Red Blood Cell (RBC) Count 4.11 mill/uL (4.70-6.10)
[2024-10-05 12:02] LABS: Bacteria/HPF None Seen HPF (None Seen); Bilirubin Negative (Negative); Blood, Urine Negative (Negative); Clarity Clear (Clear); Glucose, Urine (Dipstick) Normal (Negative); Ketone, Urine Negative (Negative); Leukocyte Negative Leu/uL (Negative); Nitrite Negative (Negative); Protein, Urine (Dipstick) Negative (Neg-Trace); RBC/HPF 0-3 HPF (0-3); Specific Gravity, Urine 1.018 (1.002-1.036); Squamous Epithelial 0-3 HPF (0-3); Urobilinogen Normal mg/dL (Less than 2); WBC/HPF 0-3 HPF (0-3); pH, Urine 6.5 (5.0-9.0)
[2024-10-05 12:11] LABS: Prothrombin Time 13.2 sec (12.0-14.7)
[2024-10-05 12:12] LABS: PTT 30.8 sec (22.9-36.1)
[2024-10-05 12:17] LABS: Anion Gap 10 mmol/L (10-20); BUN (Urea Nitrogen) 17 mg/dL (8.4-25.7); Calc. Creatinine Clearance 0 mL/min (70-130); Calcium 10.4 mg/dL (7.8-10.44); Carbon Dioxide 31 mmol/L (23-31); Chloride 105 mmol/L (98-107); Estimated GFR 64; Glucose 68 mg/dL (83-110); Potassium 4.2 mmol/L (3.5-5.1); Sodium 142 mmol/L (136-145)
== END 2024-10-05 09:56 | disposition home or self-care (01) ==
LOC: LABBT 09:55
PROVIDERS: ATTEND Urology
DX: Z01.818 Encounter for other preprocedural examination (principal); C61 Malignant neoplasm of prostate; N32.0 Bladder-neck obstruction; N39.498 Other specified urinary incontinence; N28.1 Cyst of kidney, acquired; N28.9 Disorder of kidney and ureter, unspecified; F03.911 Unspecified dementia, unspecified severity, with agitation
CPT/HCPCS: 80048; 81001; 85025; 85610; 85730; 87077; 87086; 87186; 93005; 93010

== ENCOUNTER 2024-10-13 07:53 | Day surgery (SDC) | payer MEDICARE ==
[2024-10-13] MEDS ORDERED: LevoFLOXacin D5W 500 mg (100 mL) BAG ONE (09:20)
[2024-10-13] MEDS ORDERED: Triamcinolone 40 MG/ML VIAL FS SCH (09:45)
[2024-10-13] MEDS ORDERED: Lidocaine 2% PF 5 ML VIAL ONE (10:12)
[2024-10-13] MEDS ORDERED: PROPOFOL 20 ML ONE (10:12)
[2024-10-13] MEDS ORDERED: Triamcinolone 40 MG/ML VIAL ONE (10:13)
[2024-10-13] MEDS ORDERED: Ondansetron PF 4 MG/2 ML Vial ONE (10:40)
[2024-10-13] MEDS ORDERED: Dexamethasone 4 mg/ml Vial ONE (10:40)
[2024-10-13] MEDS ORDERED: fentaNYL PF 100 MCG/2 ML SYRINGE ONE (10:40)
[2024-10-13] MEDS ORDERED: PHENYLEPHRINE-NS 100 MCG/ML 10 ML SYRINGE ONE (10:43)
[2024-10-13] MEDS ORDERED: Phenazopyridine HCl 100 MG TAB ONE (11:28)
[2024-10-13] MEDS ORDERED: Oxybutynin 5 MG TAB ONE (11:29)
== END 2024-10-13 13:10 | disposition home or self-care (01) ==
LOC: SDC 07:53
PROVIDERS: ATTEND Urology
PROC: 0T7C8ZZ Dilation of Bladder Neck, Via Natural or Artificial Opening Endoscopic (ICD-10-PCS; principal; 2024-10-13)
DX: N32.0 Bladder-neck obstruction (principal); N28.1 Cyst of kidney, acquired; N28.9 Disorder of kidney and ureter, unspecified; I10 Essential (primary) hypertension; F03.911 Unspecified dementia, unspecified severity, with agitation; Z90.79 Acquired absence of other genital organ(s); Z96.653 Presence of artificial knee joint, bilateral; Z79.890 Hormone replacement therapy; Z79.899 Other long term (current) drug therapy
CPT/HCPCS: 52000; J1100; J1956; J2405; J2704; J3301

== ENCOUNTER 2024-10-14 07:38 | Emergency (ER) | payer MEDICARE ==
[2024-10-14] MEDS ORDERED: cefTRIAXone (ROCEPHIN) 2 GM VIAL ONE (08:38)
[2024-10-14] MEDS ORDERED: Sodium Chloride 0.9% 100 ML ONE (08:38)
[2024-10-14 08:56] LABS: #Basophils Less than 0.03 10x3/uL (0.0-0.2); #Eosinophils Less than 0.03 10x3/uL (0.0-0.7); %Basophils 0.1 % (0.0-1.0); %Lymphocytes 10.5 % (21.0-51.0); %Monocytes 5.5 % (0.0-10.0); %Neutrophils 83.5 % (42.0-75.0); Hematocrit 33.6 % (42.0-52.0); Hemoglobin 10.9 g/dL (14.0-18.0); Mean Corpuscular HGB CONC 32.4 g/dL (32.0-36.0); Mean Corpuscular Hemoglobin 29.1 pg (27.0-31.0); Mean Corpuscular Volume 89.6 fL (78.0-98.0); Mean Platelet Volume 9.8 fL (7.4-10.4); Platelet Count 190 10x3/uL (130-400); RBC Distribution Width 16.1 % (11.5-14.5); Red Blood Cell (RBC) Count 3.75 mill/uL (4.70-6.10)
[2024-10-14 09:14] LABS: ALT (SGPT) 19 U/L (8-55); AST (SGOT) 34 U/L (5-34); Alkaline Phosphatase 74 U/L (40-110); Anion Gap 12 mmol/L (10-20); BUN (Urea Nitrogen) 27 mg/dL (8.4-25.7); Bilirubin, Total 0.9 mg/dL (0.2-1.2); Calc. Creatinine Clearance 0 mL/min (70-130); Calcium 10.1 mg/dL (7.8-10.44); Carbon Dioxide 26 mmol/L (23-31); Chloride 106 mmol/L (98-107); Estimated GFR 56; Glucose 100 mg/dL (83-110); Sodium 140 mmol/L (136-145)
== END 2024-10-14 09:38 | disposition home or self-care (01) ==
LOC: ERS 07:38
DX: T83.011A Breakdown (mechanical) of indwelling urethral catheter, initial encounter (principal)
CPT/HCPCS: 80053; 83605; 85025; 96365; 99283; J0696